=== PATIENT | male | born 1970 | race Hispanic/Latino ===

== ENCOUNTER 2018-05-21 11:03 | Emergency (ER) | payer BC, OTHER ==
--- NOTE | 2018-05-21 13:05 | RAD REPORT ---
EXAM DESCRIPTION: RAD - Chest Pa And Lat (2 Views) - 05/21/2018 12:54 pm CLINICAL HISTORY: Cough and congestion, wheezing COMPARISON: None. TECHNIQUE: PA and lateral views of the chest were obtained. FINDINGS: The lungs are clear. Heart size is normal and central vasculature is within normal limit s. No pleural effusion or pneumothorax seen. No acute bony finding noted. No aortic abnormality. IMPRESSION: No acute cardiopulmonary process.
--- NOTE | 2018-05-21 13:16 | ER ---
Nurse's Notes [facility] Name: Mac Colón Age: 48 yrs Sex: Male : 1970 Arrival Date: 05/21/2018 Time: 11:08 Bed 27 Private MD: Aman Quintanilla R Diagnosis: Cough;Bronchitis, not specified as acute or chronic Presentation: 05/21 11:33 Presenting complaint: Patient states: i have cough and wheezing that started about 4 hj days ago; denies fever and chills; went to urgent care 2 days ago and gave me Rx; and im not getting any better; been taking those meds;. Transition of care: patient was not received from another setting of care. Resp Distress? No respiratory distress is noted at this time. Onset of symptoms was May 21, 2018. Risk Assessment: Do you want to hurt yourself or someone else? Patient reports no desire to harm self or others. Initial Sepsis Screen: Does the patient meet any 2 criteria? No. Patient's initial sepsis screen is negative. Does the patient have a suspected source of infection? No. Patient's initial sepsis screen is negative. Care prior to arrival: None. 11:33 Method Of Arrival: Ambulatory 11:33 Acuity: QUAN 3 hj Triage Assessment: 11:37 General: Appears in no apparent distress. uncomfortable, Behavior is calm, cooperative, hj appropriate for age. Pain: Complains of pain in rib cage. Respiratory: Historical: - Allergies: 11:37 No Known Allergies; hj - Home Meds: 11:37 atorvastatin oral oral [Active]; losartan oral oral [Active]; hj - PMHx: 11:37 Hyperlipidemia; Hypertension; hj - PSHx: 11:37 Knee surgery; hj - Immunization history:: Adult Immunizations up to date. - Social history:: Smoking status: Patient/guardian denies using tobacco. - Ebola Screening: : Patient negative for fever greater than or equal to 101.5 degrees Fahrenheit, and additional compatible Ebola Virus Disease symptoms Patient denies exposure to infectious person Patient denies travel to an Ebola-affected area in the 21 days before illness onset. - Family history:: not pertinent. - Hospitalizations: : No recent hospitalization is reported. Screenin:37 Abuse screen: Denies threats or abuse. Denies injuries from another. Nutritional hj screening: No deficits noted. Tuberculosis screening: No symptoms or risk factors identified. Fall Risk None identified. Assessment: 11:37 Cardiovascular: Capillary refill < 3 seconds Patient's skin is warm and dry. hj 12:35 General: Appears in no apparent distress. uncomfortable, Behavior is calm, cooperative, aj1 appropriate for age. Pain: Complains of pain in left aspect of posterior pharynx and right aspect of posterior pharynx. Neuro: Level of Consciousness is awake, alert, obeys commands, Oriented to person, place, time, situation. Cardiovascular: Patient's skin is warm and dry. Respiratory: Reports cough that is persistent Airway is patent Respiratory effort is even, unlabored, Respiratory pattern is regular, symmetrical. Respiratory: Breath sounds are clear bilaterally. GI: No signs and/or symptoms were reported involving the gastrointestinal system. : No signs and/or symptoms were reported regarding the genitourinary system. Derm: No signs and/or symptoms reported regarding the dermatologic system. Skin is pink, warm \T\ dry. normal. Musculoskeletal: No signs and/or symptoms reported regarding the musculoskeletal system. Circulation, motion, and sensation intact. Vital Signs: 11:37 BP 116 / 85; Pulse 79; Resp 18; Temp 97.6(TE); Pulse Ox 100% on R/A; Weight 89.36 kg; hj Height 5 ft. 5 in. (165.10 cm); Pain 5/10; 13:39 BP 120 / 90; Pulse 75; Resp 18; Pulse Ox 100% ; tl3 11:37 Body Mass Index 32.78 (89.36 kg, 165.10 cm) ED Course: 11:08 Patient arrived in ED. mr 11:09 Aman Quintanilla MD is Private Physician. mr 11:36 Triage completed. hj 11:37 Arm band placed on left wrist. hj 11:37 Patient has correct armband on for positive identification. Placed in gown. Bed in low hj position. Call light in reach. 12:16 Wood Tavera MD is Attending Physician. rn 12:19 Anjali Curran RN is Primary Nurse. aj1 12:35 No provider procedures requiring assistance completed. aj1 12:43 Patient moved to radiology via wheelchair. jb2 12:49 X-ray completed. Patient tolerated procedure well. Patient moved back from radiology. jb2 12:50 XRAY Chest Pa And Lat (2 Views) In Process Unspecified. EDMS 13:42 Patient did not have IV access during this emergency room visit. tl3 Administered Medications: No medications were administered Outcome: 13:16 Discharge ordered by . rn 13:40 Discharged to home ambulatory. tl3 13:40 Condition: stable 13:40 Discharge instructions given to patient, Instructed on discharge instructions, follow up and referral plans. medication usage, stressed fluid intake, continued use of medications as ordered, F/U with PCP Demonstrated understanding of 13:42 Patient left the ED. tl3 Signatures: Dispatcher [employer] EDMS Anjali Curran RN RN aj1 Darlene FaganKarsten jb2 Wood Tavera MD MD rn Joaquin, Henry, RN RN hj Lowrey, Tammy, RN RN tl3 Corrections: (The following items were deleted from the chart) 11:40 11:37 Pulse 79bpm; Resp 18bpm; Pulse Ox 100% RA; Temp 97.6F Temporal; 89.36 kg; Height hj 5 ft. 5 in.; BMI: 32.7; Pain 5/10; hj
--- NOTE | 2018-05-21 13:16 | EDPHYS ---
Physician Documentation [facility] Name: Mac Colón Age: 48 yrs Sex: Male : 1970 Arrival Date: 05/21/2018 Time: 11:08 Bed 27 Private MD: Aman Quintanilla R ED Physician Wood Tavera HPI: 05/21 12:30 This 48 yrs old Male presents to ER via Ambulatory with complaints of Cough, rn Congestion. 12:30 The patient or guardian reports cough. rn 12:30 Onset: The symptoms/episode began/occurred 4 day(s) ago. Severity of symptoms: At their rn worst the symptoms were moderate, in the emergency department the symptoms are unchanged. Associated signs and symptoms: Pertinent positives: rhinorrhea, sore throat. The patient has not experienced similar symptoms in the past. The patient has been recently seen by a physician: The patient has been recently seen at an urgent care. Reports cough/congestion/sore throat for 4 days, seen at urgent care 2 days ago, put on inhaler/cough meds/amoxicillin, reports not better, still coughing. No pulmonary issues. Non-smoker. . Historical: - Allergies: 11:37 No Known Allergies; hj - Home Meds: 11:37 atorvastatin oral oral [Active]; losartan oral oral [Active]; hj - PMHx: 11:37 Hyperlipidemia; Hypertension; hj - PSHx: 11:37 Knee surgery; hj - Immunization history:: Adult Immunizations up to date. - Social history:: Smoking status: Patient/guardian denies using tobacco. - Ebola Screening: : Patient negative for fever greater than or equal to 101.5 degrees Fahrenheit, and additional compatible Ebola Virus Disease symptoms Patient denies exposure to infectious person Patient denies travel to an Ebola-affected area in the 21 days before illness onset. - Family history:: not pertinent. - Hospitalizations: : No recent hospitalization is reported. ROS: 12:30 Constitutional: Negative for fever, chills, and weight loss, Eyes: Negative for injury, rn pain, redness, and discharge, ENT: + nasal congestion and sore throat Neck: Negative for injury, pain, and swelling, Cardiovascular: Negative for chest pain, palpitations, and edema, Respiratory: Negative for wheezing, and pleuritic chest pain, Abdomen/GI: Negative for abdominal pain, nausea, vomiting, diarrhea, and constipation, MS/Extremity: Negative for injury and deformity, Skin: Negative for injury, rash, and discoloration, Neuro: Negative for headache, weakness, numbness, tingling, and seizure. Exam: 12:30 Constitutional: This is a well developed, well nourished patient who is awake, alert, rn and in no acute distress. Repeated coughing. Head/Face: Normocephalic, atraumatic. Eyes: Pupils equal round and reactive to light, extra-ocular motions intact. Lids and lashes normal. Conjunctiva and sclera are non-icteric and not injected. Cornea within normal limits. Periorbital areas with no swelling, redness, or edema. ENT: MMM, no stridor, no oral lesions Neck: + non-tender cervical LAD Cardiovascular: Regular rate and rhythm with a normal S1 and S2. No gallops, murmurs, or rubs. No JVD. No pulse deficits. Respiratory: Lungs have equal breath sounds bilaterally, clear to auscultation. No increased work of breathing, no retractions or nasal flaring. Skin: Warm, dry with normal turgor. Normal color with no rashes, no lesions, and no evidence of cellulitis. MS/ Extremity: Pulses equal, no cyanosis. Neurovascular intact. Full, normal range of motion. Equal circumference. Neuro: Awake and alert, GCS 15, oriented to person, place, time, and situation. Cranial nerves II-XII grossly intact. Motor strength 5/5 in all extremities. Sensory grossly intact. Cerebellar exam normal. Normal gait. Vital Signs: 11:37 BP 116 / 85; Pulse 79; Resp 18; Temp 97.6(TE); Pulse Ox 100% on R/A; Weight 89.36 kg; hj Height 5 ft. 5 in. (165.10 cm); Pain 5/10; 13:39 BP 120 / 90; Pulse 75; Resp 18; Pulse Ox 100% ; tl3 11:37 Body Mass Index 32.78 (89.36 kg, 165.10 cm) MDM: 12:16 Patient medically screened. rn 13:14 Differential Diagnosis: Bronchitis Viral Syndrome Pneumonia. Data reviewed: vital rn signs, nurses notes, radiologic studies, plain films, and as a result, I will discharge patient. Counseling: I had a detailed discussion with the patient and/or guardian regarding: the historical points, exam findings, and any diagnostic results supporting the discharge/admit diagnosis, radiology results, the need for outpatient follow up, to return to the emergency department if symptoms worsen or persist or if there are any questions or concerns that arise at home. Special discussion: I discussed with the patient/guardian in detail that at this point there is no indication for admission to the hospital. It is understood, however, that if the symptoms persist or worsen the patient needs to return immediately for re-evaluation. ED course: Pt with normal CXR, will dc home as already on abx and inhaler, no oxygen requirement, told him to expect cough for another week or so. Return precautions given and understood. . 05/21 12:22 Order name: XRAY Chest Pa And Lat (2 Views); Complete Time: 13:14 rn Administered Medications: No medications were administered Disposition: 05/21/18 13:16 Discharged to Home. Impression: Cough, Bronchitis, not specified as acute or chronic. - Condition is Stable. - Discharge Instructions: Acute Bronchitis, Adult, Cough, Adult. - Medication Reconciliation Form, Thank You Letter, Antibiotic Education, Prescription Opioid Use, Work release form form. - Follow up: Private Physician; When: As needed; Reason: Recheck today's complaints, Re-evaluation by your physician. - Problem is new. - Symptoms have improved. Signatures: Dispatcher [employer] EDMS Wood Tavera MD MD rn Joaquin, Henry, RN RN hj Lowrey, Tammy, RN RN tl3 Corrections: (The following items were deleted from the chart) 13:42 13:16 05/21/2018 13:16 Discharged to Home. Impression: Cough; Bronchitis, not specified tl3 as acute or chronic. Condition is Stable. Forms are Medication Reconciliation Form, Thank You Letter, Antibiotic Education, Prescription Opioid Use. Follow up: Private Physician; When: As needed; Reason: Recheck today's complaints, Re-evaluation by your physician. Problem is new. Symptoms have improved. rn
== END 2018-05-21 13:42 | disposition home or self-care (01) ==
LOC: ER 11:03
DX: J40 Bronchitis, not specified as acute or chronic (principal); I10 Essential (primary) hypertension; E78.5 Hyperlipidemia, unspecified
CPT/HCPCS: 71046; 99283

== ENCOUNTER 2020-11-19 07:25 | Emergency (ER) | payer BC ==
--- OUTSIDE RECORDS SUMMARY | 2020-11-19 07:32 | XMS REPORT | Continuity of Care Document ---
:1970 Author Organization [facility] t Address [address] [place] [address] Care Team Providers Name Role Phone Sina Blancas DPM Attending Clinician Steve BARAJAS, P. Attending Clinician Tika Castaneda MD Attending Clinician Gabriel WEAVER Attending Clinician Unavailable Santosh Blancas DPM Attending Clinician Emanuel Tapia MD Attending Clinician Susan BARAJAS Attending Clinician TIKA CASTANEDA Admitting Clinician Unavailable Payers Payer Name Policy Type Policy Effective Date Expiration Date Sour ce Number BLUE CROSS/BLUE [id number] [facility] [id number] [id number], [place] [address] Problems Condition Condition Condition Status Onset Resolution Last Treating Co mments Source Name Details Category Date Date Treatment Clinician Date Cellulitis Cellulitis Disease Active 2019-[address] [facility] - 00:00: Medical 00 Center Allergies, Adverse Reactions, Alerts This patient has no known allergies or adverse reactions. Family History Family Member Diagnosis Comments Start Date Stop Date Source Maternal uncle No Known Problem [facility] Natural mother No Known Problem [facility] Paternal aunt No Known Problem [facility] Paternal uncle No Known Problem [facility] Natural sister No Known Problem [facility] Natural son No Known Problem [facility] Natural brother No Known Problem [facility] Natural daughter No Known Problem [facility] Natural father Diabetes [facility] Maternal aunt No Known Problem [facility] Social History Social Habit Start Date Stop Date Quantity Comments Source Sex Assigned At [facility] Tobacco use and 2020-05-21 2020-05-21 Current user [facility] - exposure 00:00:00 00:00:00 [facility] Alcohol intake 2020-05-21 2020-05-21 Current drinker of [facility] - 00:00:00 00:00:00 alcohol (finding) [facility] Alcohol Comment 2020-05-20 2020-05-20 ocassionaly [facility] L ukes - 00:00:00 00:00:00 [facility] Smoking Status Start Date Stop Date Source Current every day smoker 2020-05-21 00:00:00 [facility] Medications Ordered Filled Start Stop Current Ordering Indication Dosage Frequency Signature Comments Components Source Medication Medication Date Date Medication? Clinician (SIG) Name Name metFORMIN 2021- No 1000mg Take [address] [facility] (GLUCOPHAGE 05-24 tablet [facility] - ) 1000 MG 00:00: 23:59 (1,000 mg Me dical tablet 00 :00 total) by Center mouth 2 (two) times daily with breakfast and dinner. losartan 2021- No 50mg QD Take [address] [facility] (COZAAR) 50 05-24 tablet (50 L ukes - MG tablet 00:00: 23:59 mg total) Me dical 00 :00 by mouth Center daily. traMADoL No 50mg Take [address] [facility] (ULTRAM) 50 05-24 tablet (50 L ukes - mg tablet 00:00: 23:59 mg total) Me dical 00 :00 by mouth Center every 6 (six) hours as needed for up to 10 days. Max Daily Amount: 200 mg amoxicillin 2020- No 1{tbl} Q.5D Take [address] -clavulanat 05-24 tablet by Sharon cooley 00:00: 23:59 mouth 2 Medical (AUGMENTIN) 00 :00 (two) [place] 875-125 mg times per tablet daily for 10 days. mupirocin 1g QD Apply [address] (BACTROBAN) 05-24 topically Sharon torers - 2 % 00:00: 23:59 daily for Medical ointment 00 :00 7 days. Center Vital Signs Vital Name Observation Time Observation Value Comments Source Systolic blood 2020-05-24 11:07:00 141 mm[Hg] [facility] Diastolic blood 2020-05-24 11:07:00 91 mm[Hg] [facility] Heart rate 2020-05-24 11:07:00 57 /min [facility] Body temperature 2020-05-24 11:07:00 36 Gris [facility] Respiratory rate 2020-05-24 11:07:00 18 /min [facility] Oxygen saturation in 2020-05-24 11:07:00 100 /min [facility] Arterial blood by Medical Ce nter Pulse oximetry Body height 2020-05-20 15:59:00 165.1 cm [facility] Body weight 2020-05-20 15:59:00 85.548 kg [facility] BMI 2020-05-20 15:59:00 31.38 kg/m2 [facility] Procedures Procedure Date / Time Performed Performing Clinician Katelyn michelle POCT-GLUCOSE METER 2020-05-24 11:12:00 [facility] 2020-05-24 07:22:00 Tonya [facility] & AUTO 2020-05-24 03:41:00 Estella Castaneda C HI [facility] BASIC METABOLIC PANEL 2020-05-24 03:41:00 Estella Castaneda CH I [facility] (7) [facility] VANCOMYCIN LEVEL, TROUGH 2020-05-23 21:24:00 Tonya, [facility] Tika [facility] POCT-GLUCOSE METER 2020-05-23 21:02:00 Tonya, [facility] POCT-GLUCOSE METER 2020-05-23 16:17:00 Tonya, [facility] POCT-GLUCOSE METER 2020-05-23 11:27:00 Tonya, [facility] POCT-GLUCOSE METER 2020-05-23 07:14:00 Tonya, [facility] CBC W/PLT COUNT & AUTO 2020-05-23 04:57:00 Tonya, [facility] Tika C [facility] BASIC METABOLIC PANEL 2020-05-23 04:57:00 Tonya, [facility] CH I [facility] () [facility] BUN AND CREATININE 2020-05-23 04:57:00 Tonya, [facility] W/[facility] POCT-GLUCOSE METER 2020-05-22 20:43:00 Tonya, [facility] POCT-GLUCOSE METER 2020-05-22 16:27:00 Tonya, [facility] POCT-GLUCOSE METER 2020-05-22 11:05:00 Tonya, [facility] POCT-GLUCOSE METER 2020-05-22 07:20:00 Tonya, [facility] POCT-GLUCOSE METER 2020-05-21 16:47:00 Tonya, [facility] POCT-GLUCOSE METER 2020-05-21 15:38:00 Tonya, [facility] SURGICALLY OBTAINED 2020-05-21 14:52:55 Tito Blancas [facility] - CULTURE + GRAM STAIN Medical [address] [facility] ANAEROBIC CULTURE 2020-05-21 14:52:55 Ross, Tito A. [facility] SURGICALLY OBTAINED 2020-05-21 14:49:13 Paris Menchaca [facility] - CULTURE + GRAM STAIN Medical [address] [facility] ANAEROBIC CULTURE 2020-05-21 14:49:13 Paris Menchaca [facility] DEBRIDEMENT/I&D,WOUND 2020-05-21 13:57:00 Tito Blancas [facility] EXTREMITY LOWER [facility] POCT-GLUCOSE METER 2020-05-21 13:34:00 Tonya, [facility] ECG 12-LEAD 2020-05-21 09:07:42 Randi Tapia [facility] WOUND CULTURE + GRAM 2020-05-21 09:03:00 Tito Blancas [facility] ABORH, MANUAL 2020-05-21 06:30:00 Jaquelin Hall [facility] TYPE AND SCREEN, 2020-05-21 04:11:00 Denise Melchor [facility] CBC W/PLT COUNT & AUTO 2020-05-21 04:11:00 Tonya, [facility] C [facility] HEMOGLOBIN A1C 2020-05-21 04:11:00 Tonya, [facility] LIPID PANEL 2020-05-21 04:11:00 Tonya, [facility] BASIC METABOLIC PANEL 2020-05-21 04:11:00 Tonya, Shantelor Tika [facility] - (7) [facility] MAGNESIUM 2020-05-21 04:11:00 Tonya, [facility] POCT-GLUCOSE METER 2020-05-20 23:17:00 Tonya, [facility] SARS-COV2/RT-PCR ([facility] & 2020-05-20 22:32:00 Denise Melchor [facility] - REF LABS) Medical [facility] VANCOMYCIN LEVEL, RANDOM 2020-05-20 16:35:00 Bghigh, Diamond [facility] BUN AND CREATININE 2020-05-20 16:35:00 Bghigh, Diamond [facility] St Sharon kes - W/RATIO [facility] Plan of Care Planned Activity Planned Date Details Comments Source Future Scheduled 2023-05-[address] [facility] 00:[facility]00 (procedure) [code = Medical Center 01528910] Future Scheduled 2021-01-[address] [facility] - Test 00:00:00 (Season Ended) [code = Medic al Center INFLUENZA VACCINE (Season Ended)] Future Scheduled 2020-08-[address] Sharon kes - Test 00:00:00 measurement Medical Center (procedure) [code = 29962263] Future Scheduled 2020-05-[address] [facility] - Test 00:00:00 (12+) [code = Medical Center DEPRESSION SCREENING (12+)] Future Scheduled 2020-02-19 SHINGLES VACCINES ([address] [facility] - Test 00:00:00 of 2) [code = SHINGLES Medic al Center VACCINES (1 of 2)] Future Scheduled 1989 DTAP/TDAP/TD VACCINES [facility] Test 00:00:00 (1 - Tdap) [code = Medical C enter DTAP/TDAP/TD VACCINES (1 - Tdap)] Future Scheduled 1988-02-19 HEPATITIS C SCREENING [facility] - Test 00:00:00 [code = HEPATITIS C Medical Center SCREENING] Future Scheduled 1982 COVID-19 VACCINE (1) [facility] - Test 00:00:00 [code = COVID-[address] VACCINE (1)] Future Scheduled 1980-02-19 DIABETIC EYE EXAM [facility] - Test 00:00:00 [code = DIABETIC EYE Medical Center EXAM] Future Scheduled 1980-02-[address] [facility] - Test 00:00:00 examination Medical Center (regime/therapy) [code = 197306123] Future Scheduled 1980-02-19 Urine screening for [facility] - Test 00:00:00 protein (procedure) Medical Center [code = 703932870] Future Scheduled 1976-02-[address] [facility] - Test 00:00:00 0-64 YRS (1 of 1 - Medical C enter PPSV23) [code = PNEUMOCOCCAL VACCINE 0-64 YRS (1 of 1 - PPSV23)] Future Scheduled [address] [facility] es - Test 00:00:00 malignant neoplasm of Medica l Center colon (procedure) [code = 493892429] Encounters Start End Encounter Admission Attending Care Care Encounter Source Date/Time Date/Time Type Type Clinicians Facility Department ID 2020-07-29 2020-07-29 Office OTTONIEL Blancas [id number] 15:14:50 16:57:58 Visit Tito Andino AMBULATOR [id number] Y [id number] 2020-06-15 2020-06-15 Office OTTONIEL Blancas [id number] 07 09:30:56 13:32:13 Visit Tito A AMBULATOR [id number] Y [id number] Results Test Description Test Time Test Comments Results Result Comments Source Anaerobic culture 2020-06-03 20:32:00 Test Item Value Reference Range Interpretation Comme nts Result (test code = 6463-4) 2+ Finegoldia magna A Lab Interpretation (test code = 61089-9) Abnormal [facility] [id number] 20:32:00 Test Item Value Reference Range Interpretation Comments CULTURE (BEAKER) (test code A 2+ Finegoldia magna = 1095) ANAEROBIC [id number] 19:24:00 Test Item Value Reference Range Interpretation Comments CULTURE (BEAKER) (test No anaerobes isolated code = 1095) POC-Glucose [id number] 11:24:00 Test Item Value Reference Range Interpretation Comments POC-Glucose Meter (test 165 mg/dL 70-110 H : TE STED AT [facility] code = 1538) [address] [facility], 770 30: Electronics Technology Department Chair/Techni aurelio ID = [id number] for Prema Rodriguez Lab Interpretation (test Abnormal code = 32789-5) [facility] [id number] 11:24:00 Test Item Value Reference Range Interpretation Comments POC-GLUCOSE METER 165 mg/dL 70-110 H : TESTED A T [facility] 6720 (BEAKER) (test code = [facility] [place], 1538) [address]: Electronics Technology Department Chair/Techni aurelio ID = [id number] for Prema Padron SURGICALLY OBTAINED CULTURE + GRAM [id number] 09:43:00 Test Item Value Reference Range Interpretation Comments CULTURE (BEAKER) (test PROTEUS A <1+ P roteus code = 1095) MIRABILIS mirabilis Amikacin (test code = S 1) Ampicillin + Sulbactam S (test code = 6) Aztreonam (test code = S 32) Cefepime (test code = S 51) Cefoxitin (test code = S 68) Ceftazidime (test code S = 27) Ceftriaxone (test code S = 52) Ertapenem (test code = S 38) Gentamicin (test code S = 18) Levofloxacin (test S code = 22) Meropenem (test code = S 34) Nitrofurantoin (test R code = 23) Piperacillin + S Tazobactam (test code = 29) Tetracycline (test R code = 2) Tobramycin (test code S = 25) Trimethoprim + S Sulfamethoxazole (test code = 47) CULTURE (BEAKER) (test A 1+ Be ta-hemolytic code = 1095) streptococcus group B, by serological grouping GRAM STAIN RESULT 2+ WBCs (BEAKER) (test code = 1123) GRAM STAIN RESULT <1+ gram (BEAKER) (test code = negative rods 725807) GRAM STAIN RESULT 1+ gram (BEAKER) (test code = positive cocci 589646) in pairs and clusters SURGICALLY OBTAINED CULTURE + GRAM [id number] 09:42:00 Test Item Value Reference Range Interpretation Comments CULTURE (BEAKER) A 1+ Beta-hem olytic (test code = streptococcus g roup 1095) B, by serologic al grouping GRAM STAIN 3+ WBCs RESULT (BEAKER) (test code = 1123) GRAM STAIN 1+ gram positive RESULT (BEAKER) cocci in chains (test code = and pairs 62012) POCT-GLUCOSE [id number] 07:35:00 Test Item Value Reference Range Interpretation Comments POC-GLUCOSE METER 203 mg/dL 70-110 H : TESTED A T [facility] 6720 (BEAKER) (test code = ZORAN Weeks [facility], 1538) [address]: [employer] Department Chair/Techni aurelio ID = [id number] for Prema Padron Basic Metabolic [id number] 06:39:00 Test Item Value Reference Range Interpretation Comments Sodium (test code = 137 meq/L 613-722 4458-2) Potassium (test code 4.0 meq/L 3.5-5.1 = 2823-3) Chloride (test code = 105 meq/L 98-107 2075-0) CO2 (test code = 23 meq/L 22-29 2028-9) BUN (test code = 14 mg/dL 7-21 3094-0) Creatinine (test code 1.62 mg/dL 0.57-1.25 H = 2160-0) Glucose (test code = 223 mg/dL 70-105 H 2345-7) Calcium (test code = 9.3 mg/dL 8.4-10.2 50511-2) EGFR (test code = [place] [address]-0) CLINICAL DATA T O CALCULATE ESTIMATED GFR. TING (test code = TING) [employer] Department Chair ID - STEWART M Lab Interpretation Abnormal (test code = 17129-7) [facility] MET[facility]OLIC [id number] 06:39:00 Test Item Value Reference Range Interpretation Comments SODIUM (BEAKER) (test 137 meq/L 136-145 code = 381) POTASSIUM (BEAKER) 4.0 meq/L 3.5-5.1 (test code = 379) CHLORIDE (BEAKER) 105 meq/L 98-107 (test code = 382) CO2 (BEAKER) (test 23 meq/L 22-29 code = 355) BLOOD UREA NITROGEN 14 mg/dL 7-21 (BEAKER) (test code = 354) CREATININE (BEAKER) 1.62 mg/dL 0.57-1.25 H (test code = 358) GLUCOSE RANDOM 223 mg/dL 70-105 H (BEAKER) (test code = 652) CALCIUM (BEAKER) 9.3 mg/dL 8.4-10.2 (test code = 697) EGFR (BEAKER) (test INSUFFIC IENT CLINICAL code = 1092) DATA TO CALCULA TE ESTIMATED GFR. [employer] Department Chair TERESA WILLIAM [facility] with platelet count + automated [id number] 05:40:00 Test Item Value Reference Range Interpretation Comments WBC (test code = 6.2 See_Comment [Automated message] 6690-2) The system [email or web address] generated this result transmitted ref erence range: 3.5 - 10 .5 K/L. The refe rence range was not u sed to interpret this result as normal/abnor mal. RBC (test code = 789-8) 4.93 See_Comment [Au tomated message] The system [email or web address] generated this result transmitted ref erence range: 4.63 - 6 .08 M/L. The refe rence range was not u sed to interpret this result as normal/abnor mal. MCHC (test code = 33.3 See_Comment [Automate d message] 786-4) The system [email or web address] generated this result transmitted ref erence range: 32.3 - 3 6.5 GM/DL. The refe rence range was not u sed to interpret this result as normal/abnor mal. Hematocrit (test code = 43.9 % 40.1-51 4544-3) MCV (test code = 787-2) 89.0 fL 79-92.2 MCH (test code = 785-6) 29.6 pg 25.7-32.2 RDW (test code = 788-0) 12.2 % 11.6-14.4 Platelets (test code = 250 See_Comment [Aut omated message] 007-3) The system [email or web address] generated this result transmitted ref erence range: 150 - 45 0 K/CU MM. The referen ce range was not used to interpret this result as normal/abnor mal. MPV (test code = 9.8 fL 9.4-12.4 33615-9) nRBC (test code = 413) 0 See_Comment [Aut omated message] The system [email or web address] generated this result transmitted ref erence range: 0 - 0 /1 00 WBC. The reference r christiano was not used to int erpret this result as normal/abnormal . % Neutros (test code = 47 % 429) % Lymphs (test code = 35 % 430) % Monos (test code = 12 % 431) % Eos (test code = 432) 5 % % Baso (test code = 0 % 437) # Neutros (test code = 2.94 See_Comment [Aut omated message] 670) The system [email or web address] generated this result transmitted ref erence range: 1.78 - 5 .38 K/L. The refe rence range was not u sed to interpret this result as normal/abnor mal. # Lymphs (test code = 2.19 See_Comment [Auto mated message] 414) The system [email or web address] generated this result transmitted ref erence range: 1.32 - 3 .57 K/L. The refe rence range was not u sed to interpret this result as normal/abnor mal. # Monos (test code = 0.76 See_Comment [Autom ated message] 415) The system [email or web address] generated this result transmitted ref erence range: 0.30 - 0 .82 K/L. The refe rence range was not u sed to interpret this result as normal/abnor mal. # Eos (test code = 416) 0.28 See_Comment [Au tomated message] The system [email or web address] generated this result transmitted ref erence range: 0.04 - 0 .54 K/L. The refe rence range was not u sed to interpret this result as normal/abnor mal. # Baso (test code = 0.02 See_Comment [Automa dinah message] 417) The system [email or web address] generated this result transmitted ref erence range: 0.01 - 0 .08 K/L. The refe rence range was not u sed to interpret this result as normal/abnor mal. Immature 0 % 0-1 Granulocytes-Relative (test code = 2801) [facility] W/PLT COUNT & AUTO [id number] 05:40:00 Test Item Value Reference Range Interpretation Comments WHITE BLOOD CELL COUNT (BEAKER) 6.2 K/ L 3.5-10.5 (test code = 775) RED BLOOD CELL COUNT (BEAKER) 4.93 M/ L 4.63-6.08 (test code = 761) HEMOGLOBIN (BEAKER) (test code = 14.6 GM/DL 13.7-17.5 410) HEMATOCRIT (BEAKER) (test code = 43.9 % 40.1-51.0 411) MEAN CORPUSCULAR VOLUME (BEAKER) 89.0 fL 79.0-92.2 (test code = 753) MEAN CORPUSCULAR HEMOGLOBIN 29.6 pg 25.7-32.2 (BEAKER) (test code = 751) MEAN CORPUSCULAR HEMOGLOBIN CONC 33.3 GM/DL 32.3-36.5 (BEAKER) (test code = 752) RED CELL DISTRIBUTION WIDTH 12.2 % 11.6-14.4 (BEAKER) (test code = 412) PLATELET COUNT (BEAKER) (test 250 K/CU MM 150-450 code = 756) MEAN PLATELET VOLUME (BEAKER) 9.8 fL 9.4-12.4 (test code = 754) NUCLEATED RED BLOOD CELLS 0 /100 WBC 0-0 (BEAKER) (test code = 413) NEUTROPHILS RELATIVE PERCENT 47 % (BEAKER) (test code = 429) LYMPHOCYTES RELATIVE PERCENT 35 % (BEAKER) (test code = 430) MONOCYTES RELATIVE PERCENT 12 % (BEAKER) (test code = 431) EOSINOPHILS RELATIVE PERCENT 5 % (BEAKER) (test code = 432) BASOPHILS RELATIVE PERCENT 0 % (BEAKER) (test code = 437) NEUTROPHILS ABSOLUTE COUNT 2.94 K/ L 1.78-5.38 (BEAKER) (test code = 670) LYMPHOCYTES ABSOLUTE COUNT 2.19 K/ L 1.32-3.57 (BEAKER) (test code = 414) MONOCYTES ABSOLUTE COUNT (BEAKER) 0.76 K/ L 0.30-0.82 (test code = 415) EOSINOPHILS ABSOLUTE COUNT 0.28 K/ L 0.04-0.54 (BEAKER) (test code = 416) BASOPHILS ABSOLUTE COUNT (BEAKER) 0.02 K/ L 0.01-0.08 (test code = 417) IMMATURE GRANULOCYTES-RELATIVE 0 % 0-1 PERCENT (BEAKER) (test code = 2801) Vancomycin level, [id number] 21:55:00 Test Item Value Reference Range Interpretation Comments Vancomycin Tr (test code = 9.1 ug/mL 10-20 L 4092-3) TING (test code = TING) Electronics Technology Department Chair ID - DB Lab Interpretation (test Abnormal code = 05360-9) [facility], [id number] 21:55:00 Test Item Value Reference Range Interpretation Comments VANCOMYCIN TROUGH (BEAKER) (test 9.1 ug/mL 10.0-20.0 L code = 522) [employer] Department Chair ID - DBPOCT-GLUCOSE [id number] 21:14:00 Test Item Value Reference Range Interpretation Comments POC-GLUCOSE METER 251 mg/dL 70-110 H : TESTED A T [facility] 6720 (BEAKER) (test code = [facility], 1538) [address]: Electronics Technology Department Chair/Techni aurelio ID = [id number] for PAPO HECK POCT-GLUCOSE [id number] 16:34:00 Test Item Value Reference Range Interpretation Comments POC-GLUCOSE METER 235 mg/dL 70-110 H : TESTED A T [facility] 6720 (BEAKER) (test code = [facility], 1538) [address]: Electronics Technology Department Chair/Techni aurelio ID = [id number] for Prema Padron POCT-GLUCOSE [id number] 11:39:00 Test Item Value Reference Range Interpretation Comments POC-GLUCOSE METER 160 mg/dL 70-110 H : TESTED A T [facility] 6720 (BEAKER) (test code = [facility], 1538) [address]: Electronics Technology Department Chair/Techni aurelio ID = [id number] for Prema Padron WOUND CULTURE + GRAM [id number] 09:27:00 Test Item Value Reference Range Interpretation Comments CULTURE (BEAKER) (test PROTEUS A <1+ P roteus code = 1095) MIRABILIS mirabilis Amikacin (test code = S 1) Ampicillin + Sulbactam S (test code = 6) Aztreonam (test code = S 32) Cefepime (test code = S 51) Cefoxitin (test code = S 68) Ceftazidime (test code S = 27) Ceftriaxone (test code S = 52) Ertapenem (test code = S 38) Gentamicin (test code S = 18) Levofloxacin (test S code = 22) Meropenem (test code = S 34) Nitrofurantoin (test R code = 23) Tetracycline (test R code = 2) Tobramycin (test code S = 25) Trimethoprim + S Sulfamethoxazole (test code = 47) CULTURE (BEAKER) (test A 1+ Be ta-hemolytic code = 1095) streptococcus group B, by serological grouping GRAM STAIN RESULT 2+ WBCs (BEAKER) (test code = 1123) GRAM STAIN RESULT <1+ gram (BEAKER) (test code = positive cocci 818707) in pairs POCT-GLUCOSE [id number] 08:00:00 Test Item Value Reference Range Interpretation Comments POC-GLUCOSE METER 120 mg/dL 70-110 H : TESTED A T [facility] 6720 (BEAKER) (test code = [place], 1538) [address]: Electronics Technology Department Chair/Techni aurelio ID = [id number] for Prema Padron BUN and [id number] 05:46:00 Test Item Value Reference Range Interpretation Comments BUN (test code = 13 mg/dL 7-21 3094-0) Creatinine (test code = 1.66 mg/dL 0.57-1.25 H 2160-0) BUN/Creatinine ratio 8 For a normal (test code = 3097-3) individ ual on a normal diet, th e reference inter william for the mass ra bill ranges between 12:1 and 20:1 (BUN i n mg/dL/creatinin e in mg/dL) EGFR (test code = [place] [address]-8) CLINICAL DATA T O CALCULATE ESTIM ATED GFR. Lab Interpretation Abnormal (test code = 51176-3) [facility] [id number] 05:46:00 Test Item Value Reference Range Interpretation Comments SODIUM (BEAKER) (test 136 meq/L 136-145 code = 381) POTASSIUM (BEAKER) 4.5 meq/L 3.5-5.1 (test code = 379) CHLORIDE (BEAKER) 104 meq/L 98-107 (test code = 382) CO2 (BEAKER) (test 25 meq/L 22-29 code = 355) BLOOD UREA NITROGEN 13 mg/dL 7-21 (BEAKER) (test code = 354) CREATININE (BEAKER) 1.66 mg/dL 0.57-1.25 H (test code = 358) GLUCOSE RANDOM 159 mg/dL 70-105 H (BEAKER) (test code = 652) CALCIUM (BEAKER) 9.3 mg/dL 8.4-10.2 (test code = 697) EGFR (BEAKER) (test INSUFFIC IENT CLINICAL code = 1092) DATA TO CALCULA TE ESTIMATED GFR. Electronics Technology Department Chair ID - STEWART MBUN AND CREATININE [id number] 05:46:00 Test Item Value Reference Range Interpretation Comments BLOOD UREA NITROGEN 13 mg/dL 7-21 (BEAKER) (test code = 354) CREATININE (BEAKER) 1.66 mg/dL 0.57-1.25 H (test code = 358) BUN/CREAT RATIO 8 For a normal (BEAKER) (test code = indivi dual on a normal [id number]) diet, the refer ence interval for th e mass ratio ranges be tween 12:1 and 20:1 ( BUN in mg/dL/creatinin e in mg/dL) EGFR (BEAKER) (test INSUFFIC IENT CLINICAL code = 1092) DATA TO CALCULA TE ESTIMATED GFR. CBC W/PLT COUNT & AUTO [id number] 05:18:00 Test Item Value Reference Range Interpretation Comments WHITE BLOOD CELL COUNT (BEAKER) 5.8 K/ L 3.5-10.5 (test code = 775) RED BLOOD CELL COUNT (BEAKER) 4.86 M/ L 4.63-6.08 (test code = 761) HEMOGLOBIN (BEAKER) (test code = 14.7 GM/DL 13.7-17.5 410) HEMATOCRIT (BEAKER) (test code = 43.5 % 40.1-51.0 411) MEAN CORPUSCULAR VOLUME (BEAKER) 89.5 fL 79.0-92.2 (test code = 753) MEAN CORPUSCULAR HEMOGLOBIN 30.2 pg 25.7-32.2 (BEAKER) (test code = 751) MEAN CORPUSCULAR HEMOGLOBIN CONC 33.8 GM/DL 32.3-36.5 (BEAKER) (test code = 752) RED CELL DISTRIBUTION WIDTH 12.2 % 11.6-14.4 (BEAKER) (test code = 412) PLATELET COUNT (BEAKER) (test 238 K/CU MM 150-450 code = 756) MEAN PLATELET VOLUME (BEAKER) 9.6 fL 9.4-12.4 (test code = 754) NUCLEATED RED BLOOD CELLS 0 /100 WBC 0-0 (BEAKER) (test code = 413) NEUTROPHILS RELATIVE PERCENT 45 % (BEAKER) (test code = 429) LYMPHOCYTES RELATIVE PERCENT 36 % (BEAKER) (test code = 430) MONOCYTES RELATIVE PERCENT 13 % (BEAKER) (test code = 431) EOSINOPHILS RELATIVE PERCENT 6 % (BEAKER) (test code = 432) BASOPHILS RELATIVE PERCENT 0 % (BEAKER) (test code = 437) NEUTROPHILS ABSOLUTE COUNT 2.62 K/ L 1.78-5.38 (BEAKER) (test code = 670) LYMPHOCYTES ABSOLUTE COUNT 2.09 K/ L 1.32-3.57 (BEAKER) (test code = 414) MONOCYTES ABSOLUTE COUNT (BEAKER) 0.76 K/ L 0.30-0.82 (test code = 415) EOSINOPHILS ABSOLUTE COUNT 0.32 K/ L 0.04-0.54 (BEAKER) (test code = 416) BASOPHILS ABSOLUTE COUNT (BEAKER) 0.02 K/ L 0.01-0.08 (test code = 417) IMMATURE GRANULOCYTES-RELATIVE 1 % 0-1 PERCENT (BEAKER) (test code = 2801) POCT-GLUCOSE [id number] 20:58:00 Test Item Value Reference Range Interpretation Comments POC-GLUCOSE METER 219 mg/dL 70-110 H : TESTED A T [facility] 6720 (BEAKER) (test code = [facility], [facility]) [address]: Electronics Technology Department Chair/Techni aurelio ID = [id number] for SAIDA YOON POCT-GLUCOSE [id number] 16:40:00 Test Item Value Reference Range Interpretation Comments POC-GLUCOSE METER 245 mg/dL 70-110 H : TESTED A T [facility] 6720 (BEAKER) (test code = [facility], [facility]8) [address]: Electronics Technology Department Chair/Techni aurelio ID = [id number] for DA VIS, KEYAIRA POCT-GLUCOSE [id number] 11:55:00 Test Item Value Reference Range Interpretation Comments POC-GLUCOSE METER 193 mg/dL 70-110 H : TESTED A T [facility] 6720 (BEAKER) (test code = [facility], 1538) [address]: Electronics Technology Department Chair/Techni aurelio ID = [id number] for DA VIS, KEYAIRA POCT-GLUCOSE [id number] 07:35:00 Test Item Value Reference Range Interpretation Comments POC-GLUCOSE METER 183 mg/dL 70-110 H : TESTED A T [facility] 6720 (BEAKER) (test code = [facility], 1538) [address]: Electronics Technology Department Chair/Techni aurelio ID = [id number] for DA VIS, KEYAIRA POCT-GLUCOSE [id number] 16:59:00 Test Item Value Reference Range Interpretation Comments POC-GLUCOSE METER 179 mg/dL 70-110 H : TESTED A T [facility] 6720 (BEAKER) (test code = [facility] Desi [facility], 1538) [address]: Electronics Technology Department Chair/Techni aurelio ID = [id number] for DA VIS, KEYAIRA POCT-GLUCOSE [id number] 15:49:00 Test Item Value Reference Range Interpretation Comments POC-GLUCOSE METER 196 mg/dL 70-110 H : TESTED A T [facility] 6720 (BEAKER) (test code = [facility], 153) [address]: Electronics Technology Department Chair/Techni aurelio ID = [id number] for KEY WATTS ECG 12 [id number] 15:13:04Interface, External Ris In - 05/21/2020 3:13 PM CSTVentricular Rate 79 BPMAtrial Rate 79 BPMP-R Interval 156 msQRS Duration 82 msQ-T Interval 368 msQTC Calculation(Bazett) 421 [address] [place] 52 degreesR [place] 76 degreesT [place] 48 degreesNormal sinus rhythmNormal ECGNo previous ECGs availableConfirmed by MD Hesham, Junior ([id number]) on 05/21/2020 3:13:02 PM [facility] [id number] 13:46:00 Test Item Value Reference Range Interpretation Comments POC-GLUCOSE METER 184 mg/dL 70-110 H : TESTED A T [facility] 6720 (BEAKER) (test code = [facility] Desi [facility], 153) [address]: Electronics Technology Department Chair/Techni aurelio ID = [id number] for RIZWANA ADRIAN SARS-CoV2/RT-PCR (Asymptomatic ONLY)2020-05-21 11:36:00 Test Item Value Reference Range Interpretation Comments SARS-COV2/RT-PCR Negative Not Detected, (test code = Negative, See 75827-2) external report for linked test SARS-COV-2 [facility] PERFORMING LAB (test code = 41544-9) TING (test code = Negative result for this TING) test determines that SARS-CoV-2 RNA was not present in the specimen above the Limit of Detection (LOD). However, Negative results do not preclude SARS-CoV-2 infection and should not be used as the sole basis for treatment or patient management decisions. Negative results must be combined with clinical observations, patient history, and epidemiological information. A false negative result may occur if a specimen is improperly collected, transported or handled. A false negative result should be considered if patient's recent exposures or clinical presentation indicate that COVID-19 (SARS-CoV-2) is likely and diagnostic tests for other causes of illness are negative. Re-testing should be considered in cases of suspected false negatives. The limit of detection for this assay is 800 copies/mL. This SARS CoV-2 test is a real-time RT-PCR test intended for the qualitative detection of nucleic acid from SARS-CoV-2 in a nasopharyngeal swab specimen collected from individuals suspected of COVID-19 by their healthcare provider. This test has not been Food and Drug Administration (FDA) cleared or approved. This is a modified version of an approved Emergency Use Authorization (EUA) and is in the process of review by the FDA. Once authorized by the FDA, the issued EUA will be effective until the declaration that circumstances exist justifying the authorization of the emergency use of in vitro diagnostic tests for detection and/or diagnosis of COVID-19 is terminated under Section 564(b)(2) of the Act or the EUA is revoked under Section 564(g) of the Act. Fact Sheet for Healthcare Providers:https://www.[employer]/sites/default/f bessy/product/documents/F act_Sheet_HC_Providers_L oqn_HLCN-PbZ-3.pdf Fact Sheet for Healthcare Patients:https://www.[employer].ED01/sites/default/fi les/product/documents/Fa ct_Sheet_Patients_Lyra_S ARS-CoV-2.pdf Performing Laboratory:[facility] [place] [address] [facility])2020-05-21 11:36:00 Test Item Value Reference Range Interpretation Comments SARS-COV2/RT-PCR (test Negative Not Detected, Negative, code = 7422948) See external report for linked test SARS-COV-2 PERFORMING LAB [facility] (test code = 8211927) Negative result for this test determines that SARS-CoV-2 RNA was not present in the specimen above the Limit of Detection (LOD). However, Negative results do not preclude SARS-CoV-2 infection and should not be used as the sole basis for treatment or patient management decisions. Negative results mustbe combined with clinical observations, patient history, and epidemiological information. A false negative result may occur if a specimen is improperly collected, transported or handled. A false negative result should be considered if patient's recent exposures or clinical presentation indicate that COVID-19 (SARS-CoV-2) is likely and diagnostic tests for other causes of illness are negative. Re-testing should be considered in cases of suspected false negatives.The limit of detection for this assay is 800 copies/mL.This SARS CoV-2 test is a real-time RT-PCR test intended for the qualitative detection of nucleic acid from SARS-CoV-2 in a nasopharyngeal swab specimen collected from individuals susp ected of COVID-19 by their healthcare provider.This test has not been Food and Drug Administration (FDA) cleared or approved. This is a modified version of an approved Emergency Use Authorization (EUA) and is in the process of review by the FDA. Once authorized by the FDA, the issued EUA will be effective until the declaration that circumstances exist justifying the authorization of the emergency use of in vitro diagnostic tests for detection and/or diagnosis of COVID-19 is terminated under Section 564(b)(2) of the Act or the EUA is revoked under Section 564(g) of the Act.Fact Sheet for Healthcare Providers:https://www.[employer].com/sites/default/files/product/documents/Fact_Shee i_TQ_Gihrkgrse_Esdp_XTQS-BpF-0.pdfFact Sheet for Healthcare Patients:https://www.[employer].com/sites/default/files/product/ documents/Tsts_Cmyoc_Uvdeznij_Suhg_ZMNL-IsH-1.pdfPerforming Laboratory:[facility], [place] [address]Vgmxqxqjtx A1c 2020-05-21 08:20:00 Test Item Value Reference Range Interpretation Comments Hemoglobin A1C (test code = 4548-4) 10.2 % 4.3-6.1 H Lab Interpretation (test code = Abnormal 44035-0) [facility]HEMO[facility]IN [id number] 08:20:00 Test Item Value Reference Range Interpretation Comments HEMOGLOBIN A1C (BEAKER) (test code = 10.2 % 4.3-6.1 H 368) antonio [id number] 07:06:00 Test Item Value Reference Range Interpretation Comments ABO Grouping (test code = 2588) A Rh Factor (test code = 2589) POS [facility] HospitalBASIC METABOLIC [id number] 05:41:00 Test Item Value Reference Range Interpretation Comments SODIUM (BEAKER) (test 135 meq/L 136-145 L code = 381) POTASSIUM (BEAKER) 4.0 meq/L 3.5-5.1 (test code = 379) CHLORIDE (BEAKER) 104 meq/L 98-107 (test code = 382) CO2 (BEAKER) (test 22 meq/L 22-29 code = 355) BLOOD UREA NITROGEN 17 mg/dL 7-21 (BEAKER) (test code = 354) CREATININE (BEAKER) 1.63 mg/dL 0.57-1.25 H (test code = 358) GLUCOSE RANDOM 180 mg/dL 70-105 H (BEAKER) (test code = 652) CALCIUM (BEAKER) 9.2 mg/dL 8.4-10.2 (test code = 697) EGFR (BEAKER) (test INSUFFIC IENT CLINICAL code = 1092) DATA TO CALCULA TE ESTIMATED GFR. Electronics Technology Department Chair ID - STEWART MLipid [id number] 05:40:00 Test Item Value Reference Range Interpretation Comments Triglycerides (test 320 mg/dL code = 2571-8) Cholesterol (test code 241 mg/dL = 2093-3) HDL (test code = 44 mg/dL 5-9) LDL Calculated (test 133 mg/dL code = 36677-6) TING (test code = TING) Triglyceride Reference Range: Low Risk <150 Borderline 150-199 High Risk 200-499 Very High Risk >=500 Cholesterol Reference Range: Low Risk <200 Borderline 200-239 High Risk >240 HDL Cholesterol Reference Range: Low Risk >=60 High Risk <40 LDL Cholesterol Reference Range: Optimal <100 Near Optimal 100-129 Borderline 130-159 High 160-189 Very High >=190 Electronics Technology Department Chair ID Gavino Gorman [facility] HospitalMagnesium2020-12-31 05:40:00 Test Item Value Reference Range Interpretation Comments Magnesium (test code = 2.2 mg/dL 1.6-2.6 03161-5) TING (test code = TING) Electronics Technology Department Chair ID Gavino Gorman Lab Interpretation (test Normal code = 36189-7) [facility]UM2020-12-31 05:40:00 Test Item Value Reference Range Interpretation Comments MAGNESIUM (BEAKER) (test code = 2.2 mg/dL 1.6-2.6 627) Electronics Technology Department Chair ID - STEWART MLIPID [id number] 05:40:00 Test Item Value Reference Range Interpretation Comments TRIGLYCERIDES (BEAKER) (test code = 320 mg/dL 540) CHOLESTEROL (BEAKER) (test code = 241 mg/dL 631) HDL CHOLESTEROL (BEAKER) (test code 44 mg/dL = 976) LDL CHOLESTEROL CALCULATED (BEAKER) 133 mg/dL (test code = 633) Triglyceride Reference Range: Low Risk <150 Borderline 150-199 High Risk 200-499 Very High Risk >=500Cholesterol Reference Range: Low Risk <200 Borderline 200-239 High Risk >240HDL Cholesterol Reference Range: Low Risk >=60 High Risk <40LDL Cholesterol Reference Range: Optimal <100 Near Optimal 100-129 Borderline 130-159 High 160-189 Very High >=190 Electronics Technology Department Chair ID Gavino WILLIAM MType and screen, [id number] 05:22:00 Test Item Value Reference Range Interpretation Comments ABO/RH AUTOMATED (BEAKER) (test A POSITIVE code = 2260) Ab Scrn (test code = 890-4) NEGATIVE [facility] HospitalCB W/PLT COUNT & AUTO [id number] 04:42:00 Test Item Value Reference Range Interpretation Comments WHITE BLOOD CELL COUNT (BEAKER) 8.2 K/ L 3.5-10.5 (test code = 775) RED BLOOD CELL COUNT (BEAKER) 5.09 M/ L 4.63-6.08 (test code = 761) HEMOGLOBIN (BEAKER) (test code = 15.3 GM/DL 13.7-17.5 410) HEMATOCRIT (BEAKER) (test code = 45.5 % 40.1-51.0 411) MEAN CORPUSCULAR VOLUME (BEAKER) 89.4 fL 79.0-92.2 (test code = 753) MEAN CORPUSCULAR HEMOGLOBIN 30.1 pg 25.7-32.2 (BEAKER) (test code = 751) MEAN CORPUSCULAR HEMOGLOBIN CONC 33.6 GM/DL 32.3-36.5 (BEAKER) (test code = 752) RED CELL DISTRIBUTION WIDTH 12.7 % 11.6-14.4 (BEAKER) (test code = 412) PLATELET COUNT (BEAKER) (test 203 K/CU MM 150-450 code = 756) MEAN PLATELET VOLUME (BEAKER) 9.5 fL 9.4-12.4 (test code = 754) NUCLEATED RED BLOOD CELLS 0 /100 WBC 0-0 (BEAKER) (test code = 413) NEUTROPHILS RELATIVE PERCENT 73 % (BEAKER) (test code = 429) LYMPHOCYTES RELATIVE PERCENT 14 % (BEAKER) (test code = 430) MONOCYTES RELATIVE PERCENT 10 % (BEAKER) (test code = 431) EOSINOPHILS RELATIVE PERCENT 2 % (BEAKER) (test code = 432) BASOPHILS RELATIVE PERCENT 0 % (BEAKER) (test code = 437) NEUTROPHILS ABSOLUTE COUNT 5.99 K/ L 1.78-5.38 H (BEAKER) (test code = 670) LYMPHOCYTES ABSOLUTE COUNT 1.15 K/ L 1.32-3.57 L (BEAKER) (test code = 414) MONOCYTES ABSOLUTE COUNT (BEAKER) 0.79 K/ L 0.30-0.82 (test code = 415) EOSINOPHILS ABSOLUTE COUNT 0.15 K/ L 0.04-0.54 (BEAKER) (test code = 416) BASOPHILS ABSOLUTE COUNT (BEAKER) 0.01 K/ L 0.01-0.08 (test code = 417) IMMATURE GRANULOCYTES-RELATIVE 1 % 0-1 PERCENT (BEAKER) (test code = 2801) POCT-GLUCOSE [id number] 23:30:00 Test Item Value Reference Range Interpretation Comments POC-GLUCOSE METER 197 mg/dL 70-110 H : TESTED A T [facility] 6720 (BEAKER) (test code = [facility] [place], 1538) [address]: Electronics Technology Department Chair/Techni aurelio ID = [id number] for GR AHAM, PAPO BUN AND CREATININE [id number] 17:29:00 Test Item Value Reference Range Interpretation Comments BLOOD UREA NITROGEN 17 mg/dL 7-21 (BEAKER) (test code = 354) CREATININE (BEAKER) 1.66 mg/dL 0.57-1.25 H (test code = 358) BUN/CREAT RATIO 10 For a normal (BEAKER) (test code = indivi dual on a normal [id number]) diet, the refer ence interval for th e mass ratio ranges be tween 12:1 and 20:1 ( BUN in mg/dL/creatinin e in mg/dL) EGFR (BEAKER) (test INSUFFIC IENT CLINICAL code = 1092) DATA TO CALCULA TE ESTIMATED GFR. Electronics Technology Department Chair ID - OSWALDO CVancomycin level, [id number] 17:24:00 Test Item Value Reference Range Interpretation Comments Vancomycin Rm (test 11.9 ug/mL code = 36902-4) TING (test code = Reference Range: No TING) NormalsOperator ID - BS [facility] HospitalVANCOMYCIN LEVEL, [id number] 17:24:00 Test Item Value Reference Range Interpretation Comments VANCOMYCIN RANDOM (BEAKER) (test 11.9 ug/mL code = 523) Reference Range: No NormalsOperator ID - BS
--- NOTE | 2020-11-19 08:28 | ER ---
Nurse's Notes [facility] Name: Mac Colón Age: 50 yrs Sex: Male : 1970 Arrival Date: 11/19/2020 Time: 07:34 Bed 5 Private MD: Aman Quintanilla R Diagnosis: Fall due to bumping against object;Contusion of right knee;Effusion, right knee Presentation: 11/19 07:38 Chief complaint: Patient states: Fell yesterday in shower, c/o R knee pain, denies ph other injury or LOC. Coronavirus screen: Client denies travel out of the [place] in the last 14 days. At this time, the client does not indicate any symptoms associated with coronavirus-19. Ebola Screen: No symptoms or risks identified at this time. Initial Sepsis Screen: Does the patient meet any 2 criteria? No. Patient's initial sepsis screen is negative. Does the patient have a suspected source of infection? No. Patient's initial sepsis screen is negative. Risk Assessment: Do you want to hurt yourself or someone else? Patient reports no desire to harm self or others. Onset of symptoms was November 19, 2020. 07:38 Method Of Arrival: Wheelchair ph 07:38 Acuity: QUAN 4 ph Historical: - Allergies: 07:39 No Known Allergies; ph - Home Meds: 07:39 losartan Oral [Active]; ph - PMHx: 07:39 Hypertension; Diabetes mellitus; ph - Immunization history:: Client reports having NOT received the Covid vaccine. - Social history:: Smoking status: Patient reports the use of cigarette tobacco products, smokes one-half pack cigarettes per day. - Family history:: not pertinent. Screenin:42 Abuse screen: Denies threats or abuse. Nutritional screening: No deficits noted. tw2 Tuberculosis screening: No symptoms or risk factors identified. Fall Risk None identified. Assessment: 07:47 General: Appears in no apparent distress. Behavior is calm, cooperative, appropriate kg for age, quiet. Pain: Complains of pain in lateral aspect of right knee, posterior aspect of right knee, medial aspect of right knee and right knee Pain radiates to right leg Pain currently is 8 out of 10 on a pain scale. at worst was 10 out of 10 on a pain scale. level that patient reports is acceptable is 3 out of 10 on a pain scale. Quality of pain is described as sharp, shooting. Neuro: No deficits noted. Cardiovascular: No deficits noted. Respiratory: No deficits noted. GI: No deficits noted. : No signs and/or symptoms were reported regarding the genitourinary system. EENT: No deficits noted. Derm: No deficits noted. Musculoskeletal: Range of motion: limited in right knee Reports pain in right leg. Vital Signs: 07:38 BP 134 / 95; Pulse 92; Resp 18; Temp 98.0; Pulse Ox 99% on R/A; Weight 86.18 kg; Height ph 5 ft. 5 in. (165.10 cm); Pain 7/10; 07:45 BP 133 / 90; Pulse 90; Resp 20; Pulse Ox 98% ; kg 08:45 BP 125 / 88; Pulse 84; Resp 20; Pulse Ox 98% on R/A; kg 07:38 Body Mass Index 31.62 (86.18 kg, 165.10 cm) ph ED Course: 07:34 Patient arrived in ED. am2 07:34 Aman Quintanilla MD is Private Physician. am2 07:39 Triage completed. ph 07:40 Arm band placed on Patient placed in an exam room, on a stretcher. ph 07:42 Bed in low position. Call light in reach. Adult w/ patient. Pulse ox on. NIBP on. tw2 07:44 Tye Pires MD is Attending Physician. julianna 07:45 Ana Maria Jones, RN is Primary Nurse. kg 08:14 Knee Right 3 View XRAY In Process Unspecified. EDMS 08:26 Aman Quintanilla MD is Referral Physician. julianna 08:26 Pito Charles MD is Referral Physician. julianna 08:26 Referral Physician role handed off by Pito Charles MD julianna 08:26 Israel Salhe MD is Referral Physician. julianna 08:30 Crutch training done. Knee immobilizer and ice applied to right knee. kg 08:56 No provider procedures requiring assistance completed. Patient did not have IV access kg during this emergency room visit. Administered Medications: 08:45 Drug: Motrin (ibuprofen) 600 mg Route: PO; kg 08:57 Follow up: Response: No adverse reaction kg Outcome: 08:27 Discharge ordered by . julianna 08:56 Discharged to home ambulatory, with crutches. kg 08:56 Condition: good 08:56 Discharge instructions given to patient, Instructed on discharge instructions, follow up and referral plans. Demonstrated understanding of instructions, follow-up care, medications, Prescriptions given X 1. 08:57 Patient left the ED. kg Signatures: Dispatcher [employer] Tye Noonan MD MD cha Hall, Patricia, RN RN Mary Dia RN RN 2 Chelle Becerra Kristen, MAGDALENA RN kg
--- NOTE | 2020-11-19 08:28 | EDPHYS ---
Physician Documentation [facility] Name: Mac Colón Age: 50 yrs Sex: Male : 1970 Arrival Date: 11/19/2020 Time: 07:34 Bed 5 Private MD: Aman Quintanilla R ED Physician Tye Pires HPI: 11/19 08:23 This 50 yrs old Male presents to ER via Wheelchair with complaints of Fall julianna Injury, Knee Pain. 08:23 Details of fall: The patient fell from an upright position, while standing. Onset: The julianna symptoms/episode began/occurred 1 day(s) ago. Associated injuries: The patient sustained right knee, decreased range of motion, painful injury, swelling. Severity of symptoms: At their worst the symptoms were mild, yesterday, in the emergency department the symptoms are unchanged. The patient has not experienced similar symptoms in the past. Historical: - Allergies: 07:39 No Known Allergies; ph - Home Meds: 07:39 losartan Oral [Active]; ph - PMHx: 07:39 Hypertension; Diabetes mellitus; ph - Immunization history:: Client reports having NOT received the Covid vaccine. - Social history:: Smoking status: Patient reports the use of cigarette tobacco products, smokes one-half pack cigarettes per day. - Family history:: not pertinent. ROS: 08:23 Constitutional: Negative for fever, chills, and weight loss, Eyes: Negative for injury, julianna pain, redness, and discharge, ENT: Negative for injury, pain, and discharge, Neck: Negative for injury, pain, and swelling, Cardiovascular: Negative for chest pain, palpitations, and edema, Respiratory: Negative for shortness of breath, cough, wheezing, and pleuritic chest pain, Abdomen/GI: Negative for abdominal pain, nausea, vomiting, diarrhea, and constipation, Back: Negative for injury and pain, : Negative for injury, bleeding, discharge, and swelling, Skin: Negative for injury, rash, and discoloration, Neuro: Negative for headache, weakness, numbness, tingling, and seizure, Psych: Negative for depression, anxiety, suicide ideation, homicidal ideation, and hallucinations, Allergy/Immunology: Negative for hives, rash, and allergies, Endocrine: Negative for neck swelling, polydipsia, polyuria, polyphagia, and marked weight changes, Hematologic/Lymphatic: Negative for swollen nodes, abnormal bleeding, and unusual bruising. 08:23 MS/extremity: Positive for decreased range of motion, pain, tenderness, of the right knee. Exam: 08:23 Constitutional: This is a well developed, well nourished patient who is awake, alert, julianna and in no acute distress. Head/Face: Normocephalic, atraumatic. Eyes: Pupils equal round and reactive to light, extra-ocular motions intact. Lids and lashes normal. Conjunctiva and sclera are non-icteric and not injected. Cornea within normal limits. Periorbital areas with no swelling, redness, or edema. ENT: Nares patent. No nasal discharge, no septal abnormalities noted. Tympanic membranes are normal and external auditory canals are clear. Oropharynx with no redness, swelling, or masses, exudates, or evidence of obstruction, uvula midline. Mucous membranes moist. Neck: Trachea midline, no thyromegaly or masses palpated, and no cervical lymphadenopathy. Supple, full range of motion without nuchal rigidity, or vertebral point tenderness. No Meningismus. Chest/axilla: Normal chest wall appearance and motion. Nontender with no deformity. No lesions are appreciated. Cardiovascular: Regular rate and rhythm with a normal S1 and S2. No gallops, murmurs, or rubs. Normal PMI, no JVD. No pulse deficits. Respiratory: Lungs have equal breath sounds bilaterally, clear to auscultation and percussion. No rales, rhonchi or wheezes noted. No increased work of breathing, no retractions or nasal flaring. Abdomen/GI: Soft, non-tender, with normal bowel sounds. No distension or tympany. No guarding or rebound. No evidence of tenderness throughout. Back: No spinal tenderness. No costovertebral tenderness. Full range of motion. Male : Normal genitalia with no discharge or lesions. Skin: Warm, dry with normal turgor. Normal color with no rashes, no lesions, and no evidence of cellulitis. Neuro: Awake and alert, GCS 15, oriented to person, place, time, and situation. Cranial nerves II-XII grossly intact. Motor strength 5/5 in all extremities. Sensory grossly intact. Cerebellar exam normal. Normal gait. Psych: Awake, alert, with orientation to person, place and time. Behavior, mood, and affect are within normal limits. 08:23 Musculoskeletal/extremity: Extremities: grossly normal except: noted in the right knee: decreased ROM, pain, swelling, tenderness, ROM: full active range of motion, full passive range of motion, Circulation is intact in all extremities. Sensation intact. Compartment Syndrome exam of affected extremity: is normal. Joints: All joints are normal except the right knee displays limited range of motion, painful range of motion, swelling, Weight bearing: can bear weight with assistance only, uses walker, Tendon exam: specific tendon testing normal through active and passive range of motion DVT Exam: negative Homans' sign noted on exam, no appreciated bluish discoloration, no erythema, no increased warmth, pain, swelling, tenderness, Calves: are non-tender, have equal circumference. Vital Signs: 07:38 BP 134 / 95; Pulse 92; Resp 18; Temp 98.0; Pulse Ox 99% on R/A; Weight 86.18 kg; Height ph 5 ft. 5 in. (165.10 cm); Pain 7/10; 07:45 BP 133 / 90; Pulse 90; Resp 20; Pulse Ox 98% ; kg 08:45 BP 125 / 88; Pulse 84; Resp 20; Pulse Ox 98% on R/A; kg 07:38 Body Mass Index 31.62 (86.18 kg, 165.10 cm) ph MDM: 07:44 Patient medically screened. [facility] 11/19 07:44 Order name: Knee Right 3 View XRAY [facility] 11/19 07:44 Order name: Ice pack; Complete Time: 07:[address] [facility] 11/19 08:23 Order name: Knee Immobilizer; Complete Time: 08:[address] [facility] 11/19 08:23 Order name: Crutches; Complete Time: 08:37 julianna Administered Medications: 08:45 Drug: Motrin (ibuprofen) 600 mg Route: PO; kg 08:57 Follow up: Response: No adverse reaction kg Disposition Summary: 11/19/20 08:27 Discharge Ordered Location: Home julianna Problem: new julianna Symptoms: have improved julianna Condition: Stable julianna Diagnosis - Fall due to bumping against object julianna - Contusion of right knee julianna - Effusion, right knee julianna Followup: julianna - With: Aman Quintanilla MD - When: 2 - 3 days - Reason: Recheck today's complaints, Re-evaluation by your physician Followup: julianna - With: Pito Charles MD - When: 2 - 3 days - Reason: Recheck today's complaints, Continuance of care, Re-evaluation by your physician Followup: julianna - With: Israel Saleh MD - When: 2 - 3 days - Reason: Recheck today's complaints, Continuance of care, Re-evaluation by your physician Discharge Instructions: - Knee Effusion julianna - Acute Knee Pain, Adult [facility] - Discharge Summary Sheet tw2 - Knee Effusion, [id number] julianna - Acute Knee Pain, Adult, [id number] [facility] Forms: - Work release form tw2 - Medication Reconciliation Form [facility] - Thank You Letter [facility] - Antibiotic Education [facility] - Prescription Opioid Use [facility] Prescriptions: - Ibuprofen 600 mg Oral Tablet - take 1 tablet by ORAL route every 6 hours As needed take with food; 21 tablet; [facility] Refills: 0, Product Selection Permitted Signatures: Dispatcher [employer] Tye Noonan MD MD cha Hall, Patricia, RN RN Ana Maria Ziegler RN RN kg
[2020-11-19] MEDS ORDERED: IBUPROFEN 400 MG TAB ONE (09:00)
[2020-11-19] MEDS ORDERED: IBUPROFEN 200 MG TAB PO ONE (09:00)
[2020-11-19 09:03] VITALS: TEMP 98
[2020-11-19 09:04] VITALS: O2SAT 98
[2020-11-19 09:06] VITALS: BP 125/88
--- NOTE | 2020-11-19 09:24 | RAD REPORT ---
EXAM DESCRIPTION: RAD - Knee Right 3 View - 11/19/2020 8:14 am CLINICAL HISTORY: PAIN COMPARISON: No comparisons FINDINGS: A small suprapatellar joint effusion is present. Vertical defect in the patella laterally could represent a bipartite patella or a fracture. Suggest correlation with clinical point tenderness .
== END 2020-11-19 08:57 | disposition home or self-care (01) ==
LOC: ER 07:25
DX: S80.01XA Contusion of right knee, initial encounter (principal); M25.461 Effusion, right knee; W18.00XA Striking against unspecified object with subsequent fall, initial encounter; I10 Essential (primary) hypertension; F17.210 Nicotine dependence, cigarettes, uncomplicated
CPT/HCPCS: 99284

== ENCOUNTER 2024-01-16 14:07 | Inpatient (IN) | payer BC ==
[2024-01-16] MEDS ORDERED: ACETAMINOPHEN 500 MG TAB ONE (14:53)
[2024-01-16] MEDS ORDERED: NA CHLORIDE 0.9% 500 ML ONE (14:53)
[2024-01-16] MEDS ORDERED: NA CHLORIDE 0.9% 2,000 ML ONE (14:54)
[2024-01-16] MEDS ORDERED: VANCOMYCIN 1 GM/VIAL ONE (15:01)
[2024-01-16] MEDS ORDERED: PIPERACIL/TAZO 3.375 GM VIAL IV ONE (15:02)
[2024-01-16] MEDS ORDERED: NA CHLORIDE 0.9% 100 ML ONE (15:02)
[2024-01-16] MEDS ORDERED: NA CHLORIDE 0.9% 250 ML ONE (15:02)
[2024-01-16 15:09] LABS: Absolute Basophils 0.1 K/uL (0-0.5); Absolute Eosinophils 0.1 K/uL (0-0.5); Absolute Lymphocytes (CBC) 1.5 K/uL (0.7-4.9); Absolute Monocytes 1.3 K/uL (0.1-1.3); Absolute Neutrophil 9.1 K/uL (1.8-8.0); Basophils % 0.5 % (0-1.3); Eosinophils % 0.9 % (0-4.4); Hematocrit 40.2 % (39.6-49.0); Hemoglobin 13.4 g/dL (13.6-17.9); Lymphocytes % 12.1 % (15.3-44.8); MCH 28.7 pg (27.0-35.0); MCHC 33.4 g/dL (32.0-36.0); MCV 86.2 fL (80-100); MPV 7.7 fL (7.6-11.3); Neutrophils % 75.5 % (41.7-73.7); Platelets 255 thou/uL (152-406); RBC Red Blood Cell Count 4.66 M/uL (4.33-5.43); Red Cell Distribution Width 13.6 % (12.1-15.2)
[2024-01-16 15:13] LABS: PT Prothrombin Time 11.9 SECONDS (9.4-12.5); PTT, Activated Partial Thromb 31.8 SECONDS (24.3-36.9); Protime INR 1.06
[2024-01-16 15:20] LABS: Albumin 3.3 g/dL (3.4-5.0); Albumin/Globulin Ratio 0.8 (1.1-1.8); Anion Gap 10.7 mEq/L (5.0-15.0); Bilirubin Total 0.7 mg/dL (0.2-1.0); Globulin 4.4 g/dL (2.3-3.5); Potassium 3.7 mEq/L (3.5-5.1); Protein, Total 7.7 g/dL (6.4-8.2)
[2024-01-16 15:31] LABS: Specific Gravity 1.016 (1.005-1.030); Sqamous Epithelial None Seen /HPF (None Seen); Urine Bacteria <20 /HPF (<20); Urine Bilirubin NEGATIVE (Negative); Urine Blood Negative (Negative); Urine Clarity Clear (Clear); Urine Color Light-Yellow (Yellow); Urine Culture Reflex Order NOT NEEDED; Urine Glucose 4+ (Over) (Negative); Urine Ketones NEGATIVE (Negative); Urine Microscopic Reflex YN ORDER UMIC; Urine Nitrite NEGATIVE (Negative); Urine Protein 1+ (Negative); Urine RBC <5 /HPF (None Seen); Urine Urobilinogen Normal (Normal); Urine WBC <5 /HPF (<5)
--- NOTE | 2024-01-16 15:33 | RAD REPORT ---
EXAM DESCRIPTION: Ron Single View01/16/2024 3:27 pm CLINICAL HISTORY: Sepsis COMPARISON: 2017 FINDINGS: The lungs appear clear of acute infiltrate. The heart is normal size IMPRESSION: No acute abnormalities displayed
--- NOTE | 2024-01-16 15:44 | RAD REPORT ---
EXAM DESCRIPTION: RAD - Foot Left 3 View - 01/16/2024 3:28 pm CLINICAL HISTORY: Left Foot pain FINDINGS: Bony destruction involves first proximal phalanx. This likely indicates osteomyelitis. The re is likely a pathologic fracture present. No dislocation
--- NOTE | 2024-01-16 16:57 | ER ---
Nurse's Notes [facility] Name: Mac Colón Age: 53 yrs Sex: Male : 1970 Arrival Date: 01/16/2024 Time: 14:07 Bed 6 Private MD: Diagnosis: Osteomyelitis left foot, wound infection Presentation: 01/15 14:30 Chief complaint: Patient states: worsening left foot ulcers, states they have been kc6 there for a month but aren't getting better. Coronavirus screen: At this time, the client does not indicate any symptoms associated with coronavirus-19. Ebola Screen: No symptoms or risks identified at this time. Initial Sepsis Screen: Does the patient meet any 2 criteria? HR > 90 bpm. Does the patient have a suspected source of infection? No. Patient's initial sepsis screen is negative. Risk Assessment: Do you want to hurt yourself or someone else? Patient reports no desire to harm self or others. Onset of symptoms was January 16, 2024. 14:30 Method Of Arrival: Ambulatory kc 14:30 Acuity: QUAN 3 kc6 Historical: - Allergies: 14:31 No Known Allergies; kc6 - PMHx: 14:31 diabetes mellitus; Hyperlipidemia; Hypertension; kc6 - PSHx: 14:31 None; kc6 - Immunization history:: Adult Immunizations not up to date. - Infectious Disease History:: Denies. - Social history:: Smoking status: Patient/guardian denies using tobacco, the patient reports quitting approximately 1 years ago. Screenin:42 [facility] ED Fall Risk Assessment (Adult) History of falling in the last 3 months, tm6 including since admission No falls in past 3 months (0 pts) Confusion or Disorientation No (0 pts) Intoxicated or Sedated No (0 pts) Impaired Gait No (0 pts) Mobility Assist Device Used No (0 pt) Altered Elimination No (0 pt) Score/Fall Risk Level 0 - 2 = Low Risk Oriented to surroundings, Maintained a safe environment, Educated pt \\T\\ family on fall prevention, incl call for assistance when getting out of bed. Abuse screen: Denies threats or abuse. Denies injuries from another. Nutritional screening: No deficits noted. Tuberculosis screening: No symptoms or risk factors identified. Assessment: 14:42 General: Appears in no apparent distress. Behavior is calm, cooperative. Pain: tm6 Complains of pain in left foot Pain does not radiate. Pain currently is 10 out of 10 on a pain scale. Quality of pain is described as burning. Neuro: Level of Consciousness is awake, alert, obeys commands, Oriented to person, place, time, situation. Cardiovascular: Patient's skin is warm and dry. Rhythm is sinus tachycardia. Respiratory: Airway is patent Respiratory effort is even, unlabored, Respiratory pattern is regular, symmetrical. GI: No signs and/or symptoms were reported involving the gastrointestinal system. Abdomen is flat, non-distended. : No signs and/or symptoms were reported regarding the genitourinary system. EENT: No signs and/or symptoms were reported regarding the EENT system. Derm: Wound noted left foot Reports pain that is 10 out of 10 on a pain scale. Musculoskeletal: No signs and/or symptoms reported regarding the musculoskeletal system. 16:48 Reassessment: Patient and/or family updated on plan of care and expected duration. Pain tm6 level reassessed. Patient is alert, oriented x 3, equal unlabored respirations, skin warm/dry/pink. 18:48 Reassessment: report faxed to 4th floor. Attempted to confirm by phone call, no one tm6 answered at this time. 19:25 Reassessment: report given to MAGDALENA Sue. ha1 Vital Signs: 14:30 BP 102 / 61; Pulse 123; Resp 19 S; Temp 99.4(O); Pulse Ox 99% on R/A; Weight 86.18 kg kc6 (R); Height 5 ft. 5 in. (R); Pain 8/10; 15:24 BP 104 / 82; Pulse 99; Pulse Ox 99% on R/A; tm6 16:47 BP 100 / 65; Pulse 89; Pulse Ox 100% on R/A; tm6 17:21 BP 105 / 76; Pulse 83; Resp 16; Pulse Ox 97% on R/A; ph 19:23 BP 118 / 79; Pulse 75; Resp 17 S; Temp 97.4; Pulse Ox 99% on R/A; ha1 14:30 Body Mass Index 31.62 (86.18 kg, 165.1 cm) [facility] 14:30 Pain Scale: Adult [facility] ED Course: 14:11 Patient arrived in ED. ra3 14:22 Jeanine Strong MD is Attending Physician. sp3 14:31 Triage completed. kc6 14:31 Arm band placed on. kc6 14:42 Darci Dobson, MAGDALENA is Primary Nurse. tm6 14:42 Patient has correct armband on for positive identification. Placed in gown. Bed in low tm6 position. Call light in reach. Side rails up X 1. Provided Education on: use of call ballard. Client placed on continuous cardiac and pulse oximetry monitoring. NIBP monitoring applied. lay out former on. Pulse ox on. NIBP on. Sitter at bedside. Door closed. Noise minimized. Pillow given. 14:44 EKG completed in triage. Results shown to MD. tm6 14:48 Initial lab(s) drawn, by me, sent to lab. First set of blood cultures drawn by me. tm3 Inserted saline lock: 20 gauge in right antecubital area, using aseptic technique. 15:18 Urinalysis w/ reflexes Sent. tm6 15:29 Chest Single View XRAY In Process Unspecified. EDMS 15:29 Foot Left 3 View XRAY In Process Unspecified. EDMS 16:53 Aimee Song MD is Hospitalizing Provider. sp3 17:41 1741 CM met with patient at the bedside in ED exam room. Patient identified by name and ane . Demographic sheet confirmed. Patient reports he lives with his friend Emil in a first floor apartment. Mr. Colón states prior to admission, he performs ADLs independently, he has been using a "walking boot" and receiving wound care HH through [facility]. CM reached out to [facility] via [employer] to confirm status of services and inform of admission at 1815, awaiting response. Patient reports he does not have other DME, home oxygen or other medical services at this time. No MPOA in place at this time. Patient states his preferred plan is to return home and states Emil will be his transportation home. CM team will continue to follow and coordinate care. 19:50 No provider procedures requiring assistance completed. Patient admitted, IV remains in al5 place. Administered Medications: 15:18 Drug: Acetaminophen PO 1000 mg PO once Route: PO; tm6 17:30 Follow up: Response: No adverse reaction tm6 15:18 Drug: NS 0.9% IV (30 ml/kg) 30 ml/kg IV at bolus once; Sepsis Protocol Route: IV; Rate: tm6 bolus; Site: right antecubital; 17:31 Follow up: Response: No adverse reaction; IV Status: Completed infusion; IV Intake: tm6 2585ml 15:18 Drug: Piperacillin-Tazobactam IVPB 3.375 grams IVPB once over 60 mins; (mix in NS 100 tm6 mL) Route: IVPB; Infused Over: 60 mins; Site: right antecubital; 15:54 Follow up: Response: No adverse reaction; IV Status: Completed infusion; IV Intake: tm6 100ml 15:54 Drug: vancoMYCIN IVPB 1 grams IVPB once over 2 hrs Route: IVPB; Infused Over: 2 hrs; tm6 Site: right antecubital; 17:30 Follow up: Response: No adverse reaction; IV Status: Completed infusion; IV Intake: tm6 250ml Medication: 14:42 VIS not applicable for this client. tm6 Intake: 15:54 IV: 100ml; Total: 100ml. tm6 17:30 IV: 250ml; Total: 350ml. tm6 17:31 IV: 2585ml; Total: 2935ml. tm6 Outcome: 16:56 Decision to Hospitalize by Provider. sp3 19:50 Admitted to Med/surg accompanied by tech, via wheelchair, room 403, with chart, al5 19:50 Condition: good 19:50 Instructed on the need for admit, 19:51 Patient left the ED. al5 Signatures: Dispatcher [employer] EDMS Omkar Ashi tm3 Marlen Maxwell RN RN ph Patel, Setul, MD MD sp3 Ena Stapleton RN RN ha1 Beba Valente RN RN kc6 Darci Dobson RN RN tm6 Silke Middleton ra3 Chelle Baker RN RN al5 Tati Limon RN RN ane
--- NOTE | 2024-01-16 16:57 | EDPHYS ---
Physician Documentation [facility] Name: Mac Colón Age: 53 yrs Sex: Male : 1970 Arrival Date: 01/16/2024 Time: 14:07 Bed 6 Private MD: ED Physician Jeanine Strong HPI: 01/15 14:57 This 53 yrs old Male presents to ER via Ambulatory with complaints of Wound sp3 Check - left foot. 14:57 53-year-old male with a history of diabetes, hyperlipidemia, hypertension and left sp3 diabetic ulcer/wound presents to the ED with chief complaint worsening pain at the foot, discharge and foul odor coupled with generalized malaise. Symptoms have been a recurring and progressively getting worse over the last 48 hours. Patient brought in as a sepsis alert based on vital sign criteria Patient does endorse subjective fever. He denies headache, neck pain, chest pain, shortness of breath, abdominal pain, nausea, vomiting, diarrhea, syncope, rash, known sick contacts, travel history, prolonged immobilization, or any other signs or symptoms on ROS at this time.. Historical: - Allergies: 14:31 No Known Allergies; kc6 - PMHx: 14:31 diabetes mellitus; Hyperlipidemia; Hypertension; kc6 - PSHx: 14:31 None; kc6 - Immunization history:: Adult Immunizations not up to date. - Infectious Disease History:: Denies. - Social history:: Smoking status: Patient/guardian denies using tobacco, the patient reports quitting approximately 1 years ago. ROS: 14:58 Eyes: Negative for injury, pain, redness, and discharge, ENT: Negative for injury, sp3 pain, and discharge, Neck: Negative for injury, pain, and swelling, Respiratory: Negative for shortness of breath, cough, wheezing, and pleuritic chest pain, Abdomen/GI: Negative for abdominal pain, nausea, vomiting, diarrhea, and constipation, Back: Negative for injury and pain, Neuro: Negative for headache, weakness, numbness, tingling, and seizure, Psych: Negative for depression, anxiety, suicide ideation, homicidal ideation, and hallucinations, Allergy/Immunology: Negative for hives, rash, and allergies, 14:58 All other systems are negative, Exam: 14:58 Constitutional: This is a well developed, well nourished patient who is awake, alert, sp3 and in no acute distress. Head/Face: Normocephalic, atraumatic. Eyes: Pupils equal round and reactive to light, extra-ocular motions intact. Lids and lashes normal. Conjunctiva and sclera are non-icteric and not injected. Cornea within normal limits. Periorbital areas with no swelling, redness, or edema. Neck: Trachea midline, no thyromegaly or masses palpated, and no cervical lymphadenopathy. Supple, full range of motion without nuchal rigidity, or vertebral point tenderness. No Meningismus. Chest/axilla: Normal chest wall appearance and motion. Nontender with no deformity. No lesions are appreciated. Respiratory: Lungs have equal breath sounds bilaterally, clear to auscultation and percussion. No rales, rhonchi or wheezes noted. No increased work of breathing, no retractions or nasal flaring. Abdomen/GI: Soft, non-tender, with normal bowel sounds. No distension or tympany. No guarding or rebound. No evidence of tenderness throughout. Back: No spinal tenderness. No costovertebral tenderness. Full range of motion. 14:58 Cardiovascular: Rate: tachycardic, 14:58 Musculoskeletal/extremity: Left diabetic foot wound noted with malodorous discharge. 16:17 ECG was reviewed by the Attending Physician. EKG demonstrates sinus tachycardia at 110 sp3 bpm with normal intervals, normal QRS, normal axis, nonspecific diffuse ST/T changes without evidence of acute ischemia. Vital Signs: 14:30 BP 102 / 61; Pulse 123; Resp 19 S; Temp 99.4(O); Pulse Ox 99% on R/A; Weight 86.18 kg kc6 (R); Height 5 ft. 5 in. (R); Pain 8/10; 15:24 BP 104 / 82; Pulse 99; Pulse Ox 99% on R/A; tm6 16:47 BP 100 / 65; Pulse 89; Pulse Ox 100% on R/A; tm6 17:21 BP 105 / 76; Pulse 83; Resp 16; Pulse Ox 97% on R/A; ph 19:23 BP 118 / 79; Pulse 75; Resp 17 S; Temp 97.4; Pulse Ox 99% on R/A; ha1 14:30 Body Mass Index 31.62 (86.18 kg, 165.1 cm) kc6 14:30 Pain Scale: Adult kc6 MDM: 14:22 Patient medically screened. sp3 15:04 Data reviewed: vital signs, lab test result(s), EKG, radiologic studies. ED course: sp3 53-year-old male with left foot pain and probable sepsis from that. Patient meets sepsis criteria and 30 mill liters per kilogram of normal saline bolus coupled with cultures, lactate and antibiotics have all been ordered. Patient has already received some fluids and reevaluation after fluid demonstrates heart rate now in the 100 range which is down from 123. Patient is clinically feeling improved and blood pressure is now 102/61. Will admit to internal medicine once laboratory data reviewed and remainder of workup complete.. 01/15 14:39 Order name: Blood Culture Adult (2) [facility] 01/15 14:39 Order name: CBC with Diff; Complete Time: 15:34 [facility] 01/15 14:39 Order name: CMP; Complete Time: 15:34 [facility] 01/15 14:39 Order name: Lactate w/ 2H reflex if indic.; Complete Time: 15:34 [facility] 01/15 14:39 Order name: Protime (+inr); Complete Time: 15:34 [facility] 01/15 14:39 Order name: Ptt, Activated; Complete Time: 15:34 [facility] 01/15 14:39 Order name: Urinalysis w/ reflexes; Complete Time: 15:34 [facility] 01/15 18:19 Order name: CBC with Automated Diff EDMS 01/15 18:19 Order name: CBC with Automated Diff EDMS 01/15 18:19 Order name: CBC with Automated Diff EDMS 01/15 18:19 Order name: CBC with Automated Diff EDMS 01/15 18:19 Order name: Comprehensive Metabolic Panel EDMS 01/15 18:19 Order name: Comprehensive Metabolic Panel EDMS 01/15 18:19 Order name: Comprehensive Metabolic Panel EDMS 01/15 18:19 Order name: Comprehensive Metabolic Panel EDMS 01/15 18:19 Order name: Lipid Profile EDMS 01/15 18:19 Order name: Lipid Profile EDMS 01/15 18:19 Order name: Magnesium EDMS 01/15 18:19 Order name: Magnesium EDMS 01/15 18:19 Order name: Magnesium EDMS 01/15 18:19 Order name: Magnesium EDMS 01/15 14:39 Order name: Chest Single View XRAY; Complete Time: 16:10 sp3 01/15 14:39 Order name: Foot Left 3 View XRAY; Complete Time: 16:10 sp3 01/15 17:02 Order name: Foot Left Wo Cont EDMI 01/15 14:39 Order name: EKG; Complete Time: 14:39 sp3 01/15 18:19 Order name: CONS Physician Consult EDMI 01/15 14:39 Order name: Accucheck; Complete Time: 14:45 sp3 01/15 14:39 Order name: Cardiac monitoring; Complete Time: 14:45 sp3 01/15 14:39 Order name: EKG - Nurse/Tech; Complete Time: 14:43 sp3 01/15 14:39 Order name: IV Saline Lock - Large Bore; Complete Time: 14:45 sp3 01/15 14:39 Order name: Labs collected and sent; Complete Time: 14:45 sp3 01/15 14:39 Order name: O2 Per Protocol; Complete Time: 14:45 sp3 01/15 14:39 Order name: O2 Sat Monitoring; Complete Time: 14:45 sp3 01/15 14:39 Order name: Vital Signs; Complete Time: 14:43 sp3 01/15 15:06 Order name: Recheck VS; Complete Time: 15:24 sp3 01/15 15:07 Order name: Misc. Order: unwrap left foot dressing; Complete Time: 15:54 sp3 Administered Medications: 15:18 Drug: Acetaminophen PO 1000 mg PO once Route: PO; tm6 17:30 Follow up: Response: No adverse reaction tm6 15:18 Drug: NS 0.9% IV (30 ml/kg) 30 ml/kg IV at bolus once; Sepsis Protocol Route: IV; Rate: tm6 bolus; Site: right antecubital; 17:31 Follow up: Response: No adverse reaction; IV Status: Completed infusion; IV Intake: tm6 2585ml 15:18 Drug: Piperacillin-Tazobactam IVPB 3.375 grams IVPB once over 60 mins; (mix in NS 100 tm6 mL) Route: IVPB; Infused Over: 60 mins; Site: right antecubital; 15:54 Follow up: Response: No adverse reaction; IV Status: Completed infusion; IV Intake: tm6 100ml 15:54 Drug: vancoMYCIN IVPB 1 grams IVPB once over 2 hrs Route: IVPB; Infused Over: 2 hrs; tm6 Site: right antecubital; 17:30 Follow up: Response: No adverse reaction; IV Status: Completed infusion; IV Intake: tm6 250ml Disposition Summary: 01/16/24 16:56 Hospitalization Ordered Notes: Hospitalization Status: Inpatient Admission sp3 Provider: Aimee Song sp3 Condition: Stable sp3 Problem: an acute exacerbation sp3 Symptoms: have worsened sp3 Bed/Room Type: Standard sp3 Location: Telemetry/MedSurg (Inpatient)(01/16/24 18:36) bd Room Assignment: 403(01/16/24 18:36) bd Diagnosis - Osteomyelitis left foot, wound infection sp3 Forms: - Medication Reconciliation Form sp3 - SBAR form sp3 - Leadership Thank You Letter sp3 Signatures: Dispatcher [employer] EDLuisa Haskins Setul, MD MD sp3 Beba Valente RN RN 6 Darci Dobson RN RN tm6 Corrections: (The following items were deleted from the chart) 17:50 16:56 Telemetry/MedSurg (Inpatient) sp3 bd 17:50 16:56 sp3 bd 18:36 17:50 [facility] ER HOLD bd bd 18:36 17:50 ERHOLD- bd bd
--- NOTE | 2024-01-16 18:08 | P.HP ---
Certification for Inpatient Patient admitted to: Inpatient With expected LOS: >2 Midnights Patient will require the following post-hospital care: None Practitioner: I am a practitioner with admitting privileges, knowledge of patient current condition, hospital course, and medical plan of care. Services: Services provided to patient in accordance with Admission requirements found in Title 42 Section 412.3 of the Code of Federal Regulations <Megan Marinolen - Last Filed: 01/16/24 19:31> Patient History Date of Service: 01/16/24 <Aimee Song - Last Filed: 01/16/24 19:20> Date of Service: 01/16/24 Reason for admission: Diabetic foot/osteomyelitis History of Present Illness: Mr. Colón is a 53-year-old male with a history of diabetes, hyperlipidemia, hypertension and left diabetic ulcer/wound presents to the ED with chief complaint worsening pain at the foot, discharge and foul odor coupled with generalized malaise. He has been having home health three times weekly for wound care to left 2-4 toes. Yesterday his third toe became thickened and changed color with discharge. On assessment in the ED, he was found to have osteomyelitis. He will be admitted for treatment with IV antibiotics, wound care, and with consult to Dr. Rico for operative management. Home medications list reviewed: Yes - Past Medical/Surgical History Has patient received pneumonia vaccine in the past: No Diabetic: Yes -: DMII -: HTN -: knee sx 1997 x2 -: Left axilla cyst removal -: Left plantar diabetic wound -: Hand surgery Psychosocial/ Personal History: Lives at home with his , has been having wound care 3 times weekly to the left foot with home health - Family History Father -: Diabetes - Social History Smoking Status: Former smoker Smoking therapy provided: No (Quit 1 year ago in February 11) Alcohol use: No CD- Drugs: No Caffeine use: Yes Place of Residence: Home <Megan Marinolen - Last Filed: 01/16/24 19:31> Allergies No Known Allergies Allergy (Verified 02/16/23 14:24) Home Medications: Glimepiride 1 tab PO DAILY 08/22/22 Losartan Potassium 1 tab PO DAILY 08/22/22 Rosuvastatin [Crestor*] 1 tab PO DAILY 08/22/22 Review of Systems 10-point ROS is otherwise unremarkable General: Chills Musculoskeletal: Foot Pain Integumentary: As per HPI <Megan Marino - Last Filed: 01/16/24 19:31> Physical Examination - Studies Laboratory Data (last 24 hrs) 01/16/24 01/16/24 01/16/24 14:50 14:50 14:50 WBC 12.00 H Hgb 13.4 L Hct 40.2 Plt Count 255 PT 11.9 INR 1.06 APTT 31.8 Sodium 135 L Potassium 3.7 BUN 28 H Creatinine 2.83 H Glucose 271 H Total Bilirubin 0.7 AST 55 H ALT 50 Alkaline Phosphatase 122 H <NohemiGoldumer Da Silva - Last Filed: 01/16/24 19:20> - Physical Exam General: Alert, In no apparent distress, Oriented x3 HEENT: Atraumatic, Normocephalic Neck: Supple Respiratory: Clear to auscultation bilaterally, Normal air movement Cardiovascular: No edema, Regular rate/rhythm, Normal S1 S2 Capillary refill: <2 Seconds Gastrointestinal: Normal bowel sounds, Soft and benign Musculoskeletal: No clubbing, Other (Edema and discharge from left third toe) Integumentary: Skin breakdown, Tenderness/swelling, Warmth, Other (Thickening and discharge with erythema to 2nd through 4th toes most severe at third toe, previous wound care between second and third and between third and fourth toes and plantar surface under third toe) Neurological: Normal speech, Normal tone, Normal affect Lymphatics: No axilla or inguinal lymphadenopathy External genitalia: Deferred Rectal: Deferred - Studies Laboratory Data (last 24 hrs) 01/16/24 01/16/24 01/16/24 14:50 14:50 14:50 WBC 12.00 H Hgb 13.4 L Hct 40.2 Plt Count 255 PT 11.9 INR 1.06 APTT 31.8 Sodium 135 L Potassium 3.7 BUN 28 H Creatinine 2.83 H Glucose 271 H Total Bilirubin 0.7 AST 55 H ALT 50 Alkaline Phosphatase 122 H <Megan Marino - Last Filed: 01/16/24 19:31> Assessment and Plan Physician Review Additional Text: Pt seen and examined. I agree with the note by the FILAMENT TESTER. Pt is a 53 yo male with past medical history of DM II, Htn, and HLD who presents with left foot diabetic ulcer/ wound. Pt noticed more pain, drainage and foul odor to the left foot wound which prompted him to come to the ER for evaluation. The symptoms are also associated with fever. On admission, lab studies show wbc 12, Hgb 13.4, K 3.7, Cr 2.83, glucose 271.At bedside, pt is in NAD. A/P: Sepsis 2/2 left foot osteomyelitis: Will continue iv abx and f/u blood and wound cx. Consulted Gen surgeon. X-ray of the foot shows bony destruction involves first proximal phalanx. This likely indicates osteomyelitis. Will f/u MRI of left foot DM II: Continue accuchek, SSI, Lantus 20u qhs, and ADA diet Htn: Continue home med HLD: continue statin DVT ppx: SCD Code: full <Aimee Song - Last Filed: 01/16/24 19:20> - Plan Osteomyelitis of the left 2nd through 4th toes Consult Dr. Rico -done MRI left foot Patient has had recent bilateral venous Dopplers IV antibiotics Local wound care N.p.o. past midnight Diabetes with HOOD second to infection Glucose monitoring with SSI Monitor and trend Avoid nephrotoxic drugs Gentle hydration Hypertension Continue losartan 50 mg p.o. daily Hyperlipidemia Continue rosuvastatin 20 mg p.o. daily VTE/GI prophylaxis Discharge Plan: Home Plan to discharge in: Greater than 2 days - Advance Directives Does patient have a Living Will: No Does patient have a Durable POA for Healthcare: No - Code Status/Comfort Care Code Status Assessed: Yes (Full) <Megan Marino - Last Filed: 01/16/24 19:31>
[2024-01-16] MEDS ORDERED: SODIUM CHLORIDE 0.9% 10ML INJ IV PRN (18:09)
[2024-01-16] MEDS: VANCOMYCIN 1 GM in NA CHLORIDE 0.9% 250 ML IVPB SCH (18:15)
--- NOTE | 2024-01-16 19:32 | RAD REPORT ---
EXAM DESCRIPTION: MRI - Foot Left Wo Cont - 01/16/2024 7:17 pm CLINICAL HISTORY: Foot pain and swelling COMPARISON: X-ray January 16, 2024 TECHNIQUE: Axial, sagittal and coronal magnetic resonance imaging left foot FINDINGS: Abnormal signal involves all the first proximal phalanx. Mildly displaced subacute fractur e. Abnormal signal adjacent sesamoid consistent osteomyelitis Abnormal signal involves all third proximal phalanx and third middle phalanx. Abnormal signal involves fourth proximal phalanx and portion fourth middle phalanx Additional apparent abnormal signal probably is artifactual. IMPRESSION: Osteomyelitis first proximal phalanx with fracture Osteomyelitis third and fourth digits
[2024-01-16] MEDS: ROSUVASTATIN 10 MG TAB PO SCH (20:17)
[2024-01-16] MEDS: ENOXAPARIN 40 MG/0.4 ML SQ SCH (20:17)
[2024-01-16] MEDS: NA CHLORIDE 0.9% 1,000 ML IV SCH (20:17)
[2024-01-16] MEDS: VANCOMYCIN 1.25 GM in NA CHLORIDE 0.9% 250 ML IVPB ONE (20:18)
[2024-01-16] MEDS: HYDROCODONE/APAP 5/325 MG TAB PO PRN (21:08)
[2024-01-17] MEDS: INSULIN REGULAR (HUMAN) 100 UNIT/ML SQ SCH
[2024-01-17] MEDS: PIPER TAZO 3.375 GM in NA CHLORIDE 0.9% 100 ML IV SCH (00:42)
[2024-01-17 07:20] LABS: Absolute Eosinophils 0.3 K/uL (0-0.5); Absolute Lymphocytes (CBC) 1.8 K/uL (0.7-4.9); Absolute Monocytes 1.2 K/uL (0.1-1.3); Absolute Neutrophil 4.8 K/uL (1.8-8.0); Basophils % 0.5 % (0-1.3); Eosinophils % 3.4 % (0-4.4); Hemoglobin 12.6 g/dL (13.6-17.9); Lymphocytes % 22.2 % (15.3-44.8); MCH 28.6 pg (27.0-35.0); MCHC 33.2 g/dL (32.0-36.0); MCV 86.2 fL (80-100); MPV 7.6 fL (7.6-11.3); Monocytes % 14.3 % (3.3-12.3); Neutrophils % 59.6 % (41.7-73.7); Platelets 270 thou/uL (152-406); RBC Red Blood Cell Count 4.41 M/uL (4.33-5.43); Red Cell Distribution Width 13.6 % (12.1-15.2)
[2024-01-17 07:38] LABS: Albumin 2.9 g/dL (3.4-5.0); Albumin/Globulin Ratio 0.8 (1.1-1.8); Bilirubin Total 0.5 mg/dL (0.2-1.0); Globulin 3.8 g/dL (2.3-3.5); Magnesium 2.1 mg/dL (1.6-2.4); Protein, Total 6.7 g/dL (6.4-8.2)
[2024-01-17] MEDS ORDERED: propofoL 200 MG/20 ML VIAL IV ONE (08:53)
[2024-01-17] MEDS ORDERED: FENTANYL CITR 100 MCG/2 ML ONE (08:53)
[2024-01-17] MEDS ORDERED: MIDAZOLAM HCL 2 MG/2 ML INJ ONE (08:53)
[2024-01-17] MEDS ORDERED: LIDOCAINE 2% MPF 5 ML VIAL ONE (08:53)
[2024-01-17] MEDS ORDERED: ONDANSETRON 4 MG/2 ML VIAL ONE (08:53)
[2024-01-17] MEDS: LOSARTAN POTASSIUM 50 MG TABLET PO SCH ×2 (09:00→12:13)
[2024-01-17] MEDS: PANTOPRAZOLE 40 MG INJ IVP SCH ×2 (09:00→12:13)
[2024-01-17] MEDS: Mupirocin NASAL 2 APPL/1 GM TUBE NAS SCH ×2 (09:00→12:13)
[2024-01-17] MEDS: NA CHLORIDE 0.9% 1,000 ML ONE (09:10)
[2024-01-17] MEDS: COLLAGENASE 30 GM OINTMENT TOP ONE (09:15)
[2024-01-17] MEDS: HYDROMORPHONE HCL 1 MG/ML INJ ONE (09:22)
[2024-01-17] MEDS ORDERED: EPHEDRINE SULF 50 MG/ML VIAL ONE (09:38)
[2024-01-17] MEDS: BUPIVACAINE 0.5% PF 10 ML VIAL ONE (09:48)
--- NOTE | 2024-01-17 09:48 | PREOPCON ---
Date of Consultation: 01/16/2024 Chief Complaint: Left foot pain. History Of Present Illness: The patient is a 53-year-old gentleman whom [facility] with grade 1 diabetic wounds for the past month or so and patient was in his [facility] state of health, but about a day or 2 ago, he noticed that there was a foul odor, weakness, incre asing pain in the left foot. He came to the ER, was found to have osteomyelitis of his left first, t hird, and fourth toes. He also has a bad diabetic foot infection with probable loss of the third toe , multiple wounds in the web space on either side of the toes between the first and fifth toe. He de nies any fever at this time. Does have this some purulent drainage from the third toe area. The chris ramirez did have an arterial Doppler done a couple weeks ago and he was scheduled to see Dr. Valdez as he d oes have disease in the left leg and his appointment was for next week. However, given this infectio n, we need to address that first and then we will proceed with a vascular evaluation and intervention as needed. The patient denies any sore throat, runny nose, cough, headaches, or dizziness. No ches t pain. Review of Systems: Otherwise unremarkable. Past Medical History: Type 2 diabetes with neuropathy, hypertension. Past Surgical History: Knee surgery, left axilla cyst removal, left plantar diabetic wound. The chris ramirez used to smoke, quit about a year ago. Does not drink alcohol. Family History: Significant for diabetes. Physical Examination: Vital Signs: Currently are stable. He is afebrile. General: He is awake, alert, oriented x3. Head and Neck: No masses. Chest: Clear. Heart: S1, S2. Abdomen: Soft. Extremities: Diminished dorsalis pedis and posterior tibial pulses on the left side. In the third t oe, there is significant amount of swelling, purulence on the dorsum, some early gangrenous changes. Foul odor is present around the toe. There are multiple wounds in the web spaces between the first and fifth toes ranging in size from 5 mm to 2 cm with necrotic fibrin being present. Lateral macerat ions are noted. There is erythema, warmth, and edema as well. Laboratory Data: Shows white count of 4000 with a left shift on admission. INR is 1.06. Lactic aci d was 1.3 on admission. He does have a GFR between 26 and 38 with elevation of BUN and creatinine. MRI report reviewed shows osteomyelitis of the first proximal phalanx with fracture and osteomyelitis of the third and fourth digits. Assessment: Left foot diabetic infection with a third toe being severely infected and nonviable. Recommendations: IV antibiotics for 6 weeks for treatment of the osteomyelitis on the first and four th toe but the third toe needs to be amputated. Transmetatarsal amputation would be appropriate and the wounds between the toes need to be debrided. Risks, benefits, and alternatives were explained to the patient. He understands and agrees to the procedure. /MODL Voice ID: [id number] Report ID: [id number]
[2024-01-17] MEDS: MEDIHONEY 44 ML TOPICAL TUBE TOP ONE (10:14)
--- NOTE | 2024-01-17 10:52 | P.OP ---
Date of Service: 01/17/24 Preop diagnosis: Diabetic foot infection on the left side with osteomyelitis of the first third and fourth toes and multiple nonhealing wounds Postop diagnosis: Same Procedure performed: Left third toe transmetatarsal amputation and debridement of left foot wounds x 4 to subcutaneous tissue 2 of them were 1 cm in diameter and 2 were 2 cm Surgeon: Lawson Rico MD Set Up Mechanic Automatic Line: None Estimated blood loss: Minimal Specimen: Culture and sensitivity, infected bone Findings: As above Anesthesia: General None Complications: Drains: None Fluids and blood products: Nonapplicable Disposition: Recovery room Operative note: Patient brought to the OR and placed in supine position. General anesthesia began. Patient prepped and draped in the usual sterile fashion. Marcaine 0.5% infiltrated for postop pain control. Then sharp dissection to place at the base of the third toe down to the dorsum of the foot and around the toe. There was pus oozing from the toe cultures were done. Entire toe was removed down to the metatarsal head. Bleeding was controlled with cautery. The metatarsal head was debrided with a rongeur. And rasp was used to smooth out the rough edges. There were 2 wounds on the medial aspect of the second toe and the third toe. There were 2 other wounds between the medial and lateral aspect of the fourth toe. All 4 wounds were debrided to subcutaneous level. 2 wounds were 1 cm in diameter and 2 wounds were 2 cm in diameter. Wound irrigated bleeding controlled cautery. Medihoney dressing applied with gauze Kerlix and Jaden. Patient tolerated procedure in stable condition taken to recovery room in good general condition. CC:
[2024-01-17] MEDS ORDERED: HYDROMORPHONE HCL 1 MG/ML INJ IV PRN (10:53)
[2024-01-17 11:04] VITALS: O2SAT 96
--- NOTE | 2024-01-17 11:09 | P.PN ---
Subjective Date of Service: 01/17/24 Chief Complaint: Diabetic foot/osteomyelitis Subjective: No new changes <Megan Marinolen - Last Filed: 01/17/24 11:06> Date of Service: 01/17/24 <Aimee Song - Last Filed: 01/17/24 11:12> Review of Systems 10-point ROS is otherwise unremarkable <Megan Marinolen - Last Filed: 01/17/24 11:06> Physical Examination - Vital Signs Temperature: 97.5 F Blood Pressure: 114/76 Pulse: 81 Respirations: 16 Pulse Ox (%): 96 - Physical Exam General: Alert, In no apparent distress, Oriented x3 HEENT: Atraumatic, Normocephalic, PERRLA Neck: Supple Respiratory: Normal air movement Cardiovascular: Normal pulses, Regular rate/rhythm, Normal S1 S2 Capillary refill: <2 Seconds Gastrointestinal: Normal bowel sounds Musculoskeletal: Other (left 2-4th toes with diabetic wounds, third digit osteo) Integumentary: Other (pus oozing from 3rd toe. Pt to go to OR today) Neurological: Normal speech, Normal tone, Normal affect Lymphatics: No axilla or inguinal lymphadenopathy External genitalia: Deferred Rectal: Deferred - Studies Laboratory Data (last 24 hrs) 01/16/24 01/16/24 01/16/24 14:50 14:50 14:50 WBC 12.00 H Hgb 13.4 L Hct 40.2 Plt Count 255 PT 11.9 INR 1.06 APTT 31.8 Sodium 135 L Potassium 3.7 BUN 28 H Creatinine 2.83 H Glucose 271 H Total Bilirubin 0.7 AST 55 H ALT 50 Alkaline Phosphatase 122 H <Megan Marinolen - Last Filed: 01/17/24 11:06> - Studies Laboratory Data (last 24 hrs) 01/16/24 01/16/24 01/16/24 14:50 14:50 14:50 WBC 12.00 H Hgb 13.4 L Hct 40.2 Plt Count 255 PT 11.9 INR 1.06 APTT 31.8 Sodium 135 L Potassium 3.7 BUN 28 H Creatinine 2.83 H Glucose 271 H Total Bilirubin 0.7 AST 55 H ALT 50 Alkaline Phosphatase 122 H <Aimee Song - Last Filed: 01/17/24 11:12> Assessment And Plan - Plan Osteomyelitis of the left 2nd through 4th toes Consult Dr. Rico -loni, Pt to OR today MRI left foot - + osteo Patient has had recent bilateral venous Dopplers IV antibiotics Local wound care N.p.o. past midnight Diabetes with HOOD second to infection Glucose monitoring with SSI Monitor and trend 2.83 to 2.05 today 01/18/24 Avoid nephrotoxic drugs Gentle hydration Hypertension Continue losartan 50 mg p.o. daily Hyperlipidemia Continue rosuvastatin 20 mg p.o. daily VTE/GI prophylaxis Time Spent Managing PTS Care (In Minutes): 27 <Megan Marino - Last Filed: 01/17/24 11:06> - Plan Pt seen and examined. I agree with the note by the JOINERY MACHINIST. Pt had osteomyelitis in left foot. Gen surgeon will take him to the OR today. Continue iv abx. Continue home med for other chronic medical problems. <Aimee Song - Last Filed: 01/17/24 11:12>
--- NOTE | 2024-01-17 13:48 | RAD REPORT ---
EXAM DESCRIPTION: RAD - Chest Single View - 01/17/2024 1:42 pm CLINICAL HISTORY: PICC placement Verification COMPARISON: Chest Single View dated 01/16/2024; Chest Pa And Lat (2 Views) dated 05/21/2018 FINDINGS: Portable chest was obtained following placement of a left upper extremity PICC line. The c atheter tip projects over the SVC.
[2024-01-18] MEDS: VANCOMYCIN 1.5 GM in NA CHLORIDE 0.9% 500 ML IVPB SCH (04:26)
[2024-01-18] MEDS: INSULIN REGULAR (HUMAN) 100 UNIT/ML SQ SCH (07:30)
[2024-01-18 08:01] LABS: Albumin/Globulin Ratio 0.8 (1.1-1.8); Anion Gap 10.2 mEq/L (5.0-15.0); Bilirubin Total 0.5 mg/dL (0.2-1.0); Magnesium 2.3 mg/dL (1.6-2.4); Potassium 4.2 mEq/L (3.5-5.1)
[2024-01-18 08:19] LABS: Absolute Lymphocytes (CBC) 1.5 K/uL (0.7-4.9); Absolute Monocytes 1.2 K/uL (0.1-1.3); Basophils % 0.4 % (0-1.3); Eosinophils % 0.4 % (0-4.4); Hematocrit 38.5 % (39.6-49.0); Hemoglobin 12.7 g/dL (13.6-17.9); Lymphocytes % 14.2 % (15.3-44.8); MCH 28.8 pg (27.0-35.0); MCHC 32.9 g/dL (32.0-36.0); MCV 87.5 fL (80-100); MPV 7.7 fL (7.6-11.3); Monocytes % 11.4 % (3.3-12.3); Neutrophils % 73.6 % (41.7-73.7); Platelets 263 thou/uL (152-406); RBC Red Blood Cell Count 4.39 M/uL (4.33-5.43); Red Cell Distribution Width 13.4 % (12.1-15.2)
--- NOTE | 2024-01-18 11:54 | PN ---
Date of Progress Note: 01/18/2024 Subjective: The patient is awake, alert. No complaint. Vitals stable, afebrile. White count is no rmal. Cultures are pending. Gram stain is pending. Objective: Vital Signs: Stable, afebrile. Skin: Examination of the wound reveals minimal bleeding. No evidence of any active infection. No p urulence. Redness and swelling have gone down. Assessment: Status post left foot third toe transmetatarsal amputation, and debridement of multiple wounds. Recommendations: Continue wound care as ordered with Jose Guadalupe. Await culture and sensitivities to decide which antibiotics would be appropriate for the treatment of osteomyelitis in the first and fou rth toes. Plan of care discussed in detail with the patient. IONA/BLAKE Voice ID: [id number] Report ID: [id number]
--- NOTE | 2024-01-18 12:58 | EKG ---
Test Date: 2024-01-16 Test Time: 14:36:28 Yoga Instructor: KIRIT MEASUREMENT RESULTS: Intervals: Rate: 109 NC: 150 QRSD: 80 QT: 318 QTc: 428 [place]: P: 67 NC: 150 QRS: 76 T: 37 INTERPRETIVE STATEMENTS: Sinus tachycardia Otherwise normal ECG Compared to ECG 08/22/2022 15:05:42 Sinus rhythm no longer present Electronically Signed On 01-18-24 12:55:43 CDT by Ankush Blanco
--- NOTE | 2024-01-18 13:52 | P.PN ---
Subjective Date of Service: 01/18/24 Chief Complaint: Diabetic foot/osteomyelitis Pt is resting comfortably in bed. Pt is feeling better s/p 3rd toe amputation. Will continue iv abx. Waiting for culture sensitivity. No other complaints. Review of Systems General: Unremarkable Eyes: Unremarkable ENT: Unremarkable Respiratory: Unremarkable Cardiovascular: Unremarkable Gastrointestinal: Unremarkable Genitourinary: Unremarkable Musculoskeletal: Unremarkable Integumentary: Unremarkable Neurological: Unremarkable Lymphatics: Unremarkable Physical Examination - Vital Signs Temperature: 98.2 F Blood Pressure: 114/72 Pulse: 74 Respirations: 18 Pulse Ox (%): 93 - Physical Exam General: Alert, In no apparent distress, Oriented x3 HEENT: Atraumatic, Normocephalic, PERRLA Neck: Supple, 2+ carotid pulse no bruit, JVD not distended Respiratory: Clear to auscultation bilaterally, Normal air movement Cardiovascular: No edema, Normal pulses, Regular rate/rhythm, Normal S1 S2 Capillary refill: <2 Seconds Gastrointestinal: Normal bowel sounds, Soft and benign, Non-distended Musculoskeletal: No clubbing, No swelling, No contractures, Other (s/p 3rd toe amputation) Integumentary: No rashes, No breakdown, No significant lesion Neurological: Normal gait, Normal speech, Normal strength at 5/5 x4 extr Lymphatics: No axilla or inguinal lymphadenopathy Assessment And Plan - Plan Osteomyelitis of the left 2nd through 4th toes: S/p 3rd toe amputation. Will continue iv abx. Gen surgeon is following. Waiting for cx sensitivity. MRI left foot is positive for osteo Diabetes; Will continue accuchek, SSi and ADa diet. HOOD: Cr is 2.12 <- 2.83. Will continue IVF, avoid nephrotoxins and monitor renal function. Hypertension: Continue losartan 50 mg p.o. daily Hyperlipidemia: Continue rosuvastatin 20 mg p.o. daily DVT ppx: lovenox Dispo: pending hospital course.
[2024-01-18] MEDS: CEFTRIAXONE 2,000 MG in NA CHLORIDE 0.9% 100 ML IV SCH (14:12)
[2024-01-18 20:38] VITALS: BMI 31.4
[2024-01-19 06:14] LABS: Absolute Basophils 0.1 K/uL (0-0.5); Absolute Eosinophils 0.3 K/uL (0-0.5); Absolute Lymphocytes (CBC) 2.8 K/uL (0.7-4.9); Absolute Monocytes 0.8 K/uL (0.1-1.3); Absolute Neutrophil 3.9 K/uL (1.8-8.0); Basophils % 0.7 % (0-1.3); Eosinophils % 3.4 % (0-4.4); Hematocrit 38.2 % (39.6-49.0); Hemoglobin 12.8 g/dL (13.6-17.9); Lymphocytes % 35.1 % (15.3-44.8); MCH 28.9 pg (27.0-35.0); MCHC 33.4 g/dL (32.0-36.0); MCV 86.5 fL (80-100); MPV 7.6 fL (7.6-11.3); Monocytes % 10.7 % (3.3-12.3); Neutrophils % 50.1 % (41.7-73.7); Platelets 299 thou/uL (152-406); RBC Red Blood Cell Count 4.42 M/uL (4.33-5.43); Red Cell Distribution Width 13.5 % (12.1-15.2)
[2024-01-19 06:16] LABS: Albumin 2.9 g/dL (3.4-5.0); Albumin/Globulin Ratio 0.7 (1.1-1.8); Bilirubin Total 0.2 mg/dL (0.2-1.0); Globulin 4.2 g/dL (2.3-3.5); Magnesium 2.2 mg/dL (1.6-2.4); Protein, Total 7.1 g/dL (6.4-8.2)
--- NOTE | 2024-01-19 09:25 | P.DS ---
Admission Date: 01/16/24 Discharge Date: 01/19/24 Reason for Admission: Diabetic foot/osteomyelitis Consultations: Dr. Rico Procedures: Left third toe amputation and OR washout of proximal foot Brief History of Present Illness: Mr. Colón is a 53-year-old male with a history of diabetes, hyperlipidemia, hypertension and left diabetic ulcer/wound presents to the ED with chief complaint worsening pain at the foot, discharge and foul odor coupled with generalized malaise. He has been having home health three times weekly for wound care to left 2-4 toes. Yesterday his third toe became thickened and changed color with discharge. On assessment in the ED, he was found to have osteomyelitis. He will be admitted for treatment with IV antibiotics, wound care, and with consult to Dr. Rico for operative management. Hospital Course: Mr. Colón did well over the course of his hospitalization. He had his third left toe amputated with OR washout of the left distal foot. He will receive 2 g IV piggyback Rocephin via PICC x 6 weeks. His blood sugar has has been in good control, this morning 132 mg/dL . On admission he had some HOOD with a creatinine of 2.83 , this morning this is improved at 1.76. He will continue follow-up with his PCP and Dr. Rico. <Megan Marino - Last Filed: 01/19/24 16:04> Admission Date: 01/16/24 Discharge Date: 01/20/24 Hospital Course: Pt seen and examined. I agree with the note by the PROJECT ESTIMATOR. Ok to discharge pt dc pt with rocephin 2gm iv daily for 6 weeks. Follow up with PCP and Nephrology <Aimee Song - Last Filed: 01/20/24 21:50> Disposition: DC HOME/HOME HEALTH CARE Discharge Condition: GOOD Vital Signs/Physical Exam: Temp Pulse Resp BP Pulse Ox 97.6 F 73 16 123/85 98 01/19/24 08:00 01/19/24 08:00 01/19/24 08:37 01/19/24 08:00 01/19/24 08:00 General: Alert, In no apparent distress, Oriented x3 HEENT: Atraumatic, Normocephalic Neck: Supple Respiratory: Clear to auscultation bilaterally Cardiovascular: Normal pulses, Regular rate/rhythm Capillary refill: <2 Seconds Gastrointestinal: Soft and benign Musculoskeletal: No clubbing, Other (Left foot with surgical dressing clean dry and intact) Integumentary: No rashes Neurological: Normal speech, Normal tone, Normal affect Lymphatics: No axilla or inguinal lymphadenopathy External genitalia: Deferred Rectal: Deferred Laboratory Data at Discharge: WBC 7.90 thou/uL (4.3-10.9) 01/19/24 05:49 Hgb 12.8 g/dL (13.6-17.9) L 01/19/24 05:49 Hct 38.2 % (39.6-49.0) L 01/19/24 05:49 Plt Count 299 thou/uL (152-406) 01/19/24 05:49 PT 11.9 SECONDS (9.4-12.5) 01/16/24 14:50 INR 1.06 01/16/24 14:50 APTT 31.8 SECONDS (24.3-36.9) 01/16/24 14:50 Sodium 139 mEq/L (136-145) 01/19/24 05:49 Potassium 4.0 mEq/L (3.5-5.1) 01/19/24 05:49 BUN 26 mg/dL (7-18) H 01/19/24 05:49 Creatinine 1.76 mg/dL (0.70-1.30) H 01/19/24 05:49 Glucose 147 mg/dL (74-106) H 01/19/24 05:49 Magnesium 2.2 mg/dL (1.6-2.4) 01/19/24 05:49 Total Bilirubin 0.2 mg/dL (0.2-1.0) 01/19/24 05:49 AST 27 U/L (15-37) 01/19/24 05:49 ALT 47 U/L (16-61) 01/19/24 05:49 Alkaline Phosphatase 94 U/L (45-117) 01/19/24 05:49 Triglycerides 130 mg/dL (<150) 01/17/24 07:01 Cholesterol 137 mg/dL (<200) 01/17/24 07:01 HDL Cholesterol 40 mg/dL (40-60) 01/17/24 07:01 Cholesterol/HDL Ratio 3.43 01/17/24 07:01 <Marino,Megan Aubrey - Last Filed: 01/19/24 16:04> Vital Signs/Physical Exam: Temp Pulse Resp BP Pulse Ox 97.6 F 73 16 123/85 98 01/19/24 08:00 01/19/24 08:00 01/19/24 09:36 01/19/24 08:00 01/19/24 08:00 Laboratory Data at Discharge: WBC 7.90 thou/uL (4.3-10.9) 01/19/24 05:49 Hgb 12.8 g/dL (13.6-17.9) L 01/19/24 05:49 Hct 38.2 % (39.6-49.0) L 01/19/24 05:49 Plt Count 299 thou/uL (152-406) 01/19/24 05:49 PT 11.9 SECONDS (9.4-12.5) 01/16/24 14:50 INR 1.06 01/16/24 14:50 APTT 31.8 SECONDS (24.3-36.9) 01/16/24 14:50 Sodium 139 mEq/L (136-145) 01/19/24 05:49 Potassium 4.0 mEq/L (3.5-5.1) 01/19/24 05:49 BUN 26 mg/dL (7-18) H 01/19/24 05:49 Creatinine 1.76 mg/dL (0.70-1.30) H 01/19/24 05:49 Glucose 147 mg/dL (74-106) H 01/19/24 05:49 Magnesium 2.2 mg/dL (1.6-2.4) 01/19/24 05:49 Total Bilirubin 0.2 mg/dL (0.2-1.0) 01/19/24 05:49 AST 27 U/L (15-37) 01/19/24 05:49 ALT 47 U/L (16-61) 01/19/24 05:49 Alkaline Phosphatase 94 U/L (45-117) 01/19/24 05:49 Triglycerides 130 mg/dL (<150) 01/17/24 07:01 Cholesterol 137 mg/dL (<200) 01/17/24 07:01 HDL Cholesterol 40 mg/dL (40-60) 01/17/24 07:01 Cholesterol/HDL Ratio 3.43 01/17/24 07:01 <AnaisGold zarateumer Da Silva - Last Filed: 01/20/24 21:50> Diet: ADA Activity: Ad jemima <Megan Marino - Last Filed: 01/19/24 16:04> <Augustus Songdiego Da Silva - Last Filed: 01/20/24 21:50> Home Medications: Losartan Potassium 1 tab PO DAILY 08/22/22 Rosuvastatin [Crestor*] 1 tab PO DAILY 08/22/22 Pantoprazole [Protonix Tab*] 40 mg PO DAILY 01/16/24 Semaglutide [Ozempic] 2.5 mg SQ EVERY 7TH DAY 01/16/24 Oxycodone HCl/Acetaminophen [Percocet 5/325 Tab] 1 tab PO Q4H PRN 3 Days #18 tab 01/19/24 New Medications: Oxycodone HCl/Acetaminophen [Percocet 5/325 Tab] 1 tab PO Q4H PRN 3 Days #18 tab PRN Reason: Pain Physician Discharge Instructions: Home Health: [facility] Home Health P:[phone] F:[phone] Home IV antibiotics: [id number] [facility] [address], [place] [id number] P/ Tabitha: [phone] F Mr. Colón did well over the course of his hospitalization. He had his third left toe amputated with OR washout of the left distal foot. He will receive 2 g IV piggyback Rocephin via PICC x 6 weeks. His blood sugar has has been in good control, this morning 132 mg/dL . On admission he had some HOOD with a creatinine of 2.83 , this morning this is improved at 1.76. He will continue follow-up with Dr. Rico. Continue home medicines as previously prescribed GOAL: Clear understanding of disease process Diet: ADA, low sodium Activity: Fall precautions INSTRUCTIONS: Physician Discharge Instructions: Okay to DC IV and DC home Follow-up with primary care provider in 1 to 2 weeks Follow-up with Dr. Rico in 1 week Please call the inpatient unit for any questions or concerns regarding hospital stay Return to the ER for worsening symptoms Followup: Lee Lopez MD [Primary Care Provider] - 1-2 Weeks Lawson Rico MD [ACTIVE - CAN ADMIT] - 1 Week (Follow-up in the wound center in my clinic)
--- NOTE | 2024-01-19 11:45 | PN ---
Date of Progress Note: 01/19/2024 Subjective: The patient is awake, alert. No complaint. Vitals stable, afebrile. Cultures reviewed . Sensitivities pending. Blood work reviewed. Objective: Examination reveals the dressing to be clean, dry, intact. Assessment And Plan: Status post left third toe amputation. Once the sensitivities are verified and the patient has home health arranged from a surgical standpoint, he can be discharged and follow up in the [facility]. He was advised to keep his appointment with Dr. Song to have his carmela rial circulation evaluated by interventional radiologist. Dressing orders and IV antibiotics will be discussed with the Hospitalist Team prior to discharge when the sensitivities come back. /MODL Voice ID: [id number] Report ID: [id number]
[2024-01-19 15:41] VITALS: BP 106/76; TEMP 96.9
== END 2024-01-19 15:59 | disposition home health service (06) | DRG 854 ==
LOC: ER 14:07 → ERHOLD 18:09 → 4TH 18:41
PROVIDERS: ADMIT Hospitalist; ATTEND Hospitalist
PROC: 0JBR0ZZ Excision of Left Foot Subcutaneous Tissue and Fascia, Open Approach (ICD-10-PCS; 2024-01-17)
PROC: 02HV33Z Insertion of Infusion Device into Superior Vena Cava, Percutaneous Approach (ICD-10-PCS; 2024-01-17)
PROC: 0Y6U0Z0 Detachment at Left 3rd Toe, Complete, Open Approach (ICD-10-PCS; principal; 2024-01-17 09:00)
DX: A41.9 Sepsis, unspecified organism (principal); E11.52 Type 2 diabetes mellitus with diabetic peripheral angiopathy with gangrene; L03.116 Cellulitis of left lower limb; M86.172 Other acute osteomyelitis, left ankle and foot; N17.9 Acute kidney failure, unspecified; E11.69 Type 2 diabetes mellitus with other specified complication; E11.40 Type 2 diabetes mellitus with diabetic neuropathy, unspecified; E11.621 Type 2 diabetes mellitus with foot ulcer; L97.529 Non-pressure chronic ulcer of other part of left foot with unspecified severity; E78.5 Hyperlipidemia, unspecified; I10 Essential (primary) hypertension; Z87.891 Personal history of nicotine dependence; Z79.84 Long term (current) use of oral hypoglycemic drugs; Z79.899 Other long term (current) drug therapy
CPT/HCPCS: 36415; 71045; 80053; 80061; 80202; 81001; 82947; 83036; 83605; 83735; 85025; 85610; 85730; 87040; 87070; 87075; 87077; 87176; 87186; 87205; 88305; 88311; 93005; 96365; 96367; 96368; 97161; 99285; J0696; J1170; J1650; J2001; J2250; J2405; J2470; J2543; J2704; J3010; J3590; J7030; J7040; J7050

== ENCOUNTER 2024-09-18 10:23 | Inpatient (IN) | payer BC ==
--- NOTE | 2024-09-18 12:16 | EDPHYS ---
Physician Documentation [facility] Name: Mac Colón Age: 54 yrs Sex: Male : 1970 Arrival Date: 09/18/2024 Time: 10:23 Bed 25 Private MD: ED Physician Tye Pires HPI: 09/18 12:06 This 54 yrs old Male presents to ER via Ambulatory with complaints of Wound julianna Check - left leg/foot. 12:06 Patient presents to ED for recheck of: abscess, cellulitis. The affected area is on the julianna left foot. Previous treatment: Previous recheck: the patient's last recheck was 5 day(s) ago. Progress: The patient reports increased fever, pain, redness, swelling. The patient has experienced similar episodes in the past. Historical: - Allergies: 10:34 No Known Allergies; ll1 - PMHx: 10:34 diabetes mellitus; Hyperlipidemia; Hypertension; ll1 - PSHx: 10:34 toe amputation-L (Hypertension); ll1 - Immunization history:: Adult Immunizations up to date. - Infectious Disease History:: Denies. - Social history:: Smoking status: Patient/guardian denies using tobacco, the patient reports quitting approximately 2 years ago. ROS: 12:10 Constitutional: Negative for fever, chills, and weight loss, Eyes: Negative for injury, julianna pain, redness, and discharge, ENT: Negative for injury, pain, and discharge, Neck: Negative for injury, pain, and swelling, Cardiovascular: Negative for chest pain, palpitations, and edema, Respiratory: Negative for shortness of breath, cough, wheezing, and pleuritic chest pain, Abdomen/GI: Negative for abdominal pain, nausea, vomiting, diarrhea, and constipation, Back: Negative for injury and pain, : Negative for injury, bleeding, discharge, and swelling, Neuro: Negative for headache, weakness, numbness, tingling, and seizure, Psych: Negative for depression, anxiety, suicide ideation, homicidal ideation, and hallucinations, Allergy/Immunology: Negative for hives, rash, and allergies, Endocrine: Negative for neck swelling, polydipsia, polyuria, polyphagia, and marked weight changes, Hematologic/Lymphatic: Negative for swollen nodes, abnormal bleeding, and unusual bruising, 12:10 MS/extremity: Positive for injury or acute deformity, decreased range of motion, erythema, pain, swelling, tenderness, warmth, of the left foot and left leg, Exam: 12:10 Constitutional: This is a well developed, well nourished patient who is awake, alert, julianna and in no acute distress. Head/Face: Normocephalic, atraumatic. Eyes: Pupils equal round and reactive to light, extra-ocular motions intact. Lids and lashes normal. Conjunctiva and sclera are non-icteric and not injected. Cornea within normal limits. Periorbital areas with no swelling, redness, or edema. ENT: Nares patent. No nasal discharge, no septal abnormalities noted. Tympanic membranes are normal and external auditory canals are clear. Oropharynx with no redness, swelling, or masses, exudates, or evidence of obstruction, uvula midline. Mucous membranes moist. Neck: Trachea midline, no thyromegaly or masses palpated, and no cervical lymphadenopathy. Supple, full range of motion without nuchal rigidity, or vertebral point tenderness. No Meningismus. Chest/axilla: Normal chest wall appearance and motion. Nontender with no deformity. No lesions are appreciated. Cardiovascular: Regular rate and rhythm with a normal S1 and S2. No gallops, murmurs, or rubs. Normal PMI, no JVD. No pulse deficits. Respiratory: Lungs have equal breath sounds bilaterally, clear to auscultation and percussion. No rales, rhonchi or wheezes noted. No increased work of breathing, no retractions or nasal flaring. Abdomen/GI: Soft, non-tender, with normal bowel sounds. No distension or tympany. No guarding or rebound. No evidence of tenderness throughout. Back: No spinal tenderness. No costovertebral tenderness. Full range of motion. Skin: Warm, dry with normal turgor. Normal color with no rashes, no lesions, and no evidence of cellulitis. Neuro: Awake and alert, GCS 15, oriented to person, place, time, and situation. Cranial nerves II-XII grossly intact. Motor strength 5/5 in all extremities. Sensory grossly intact. Cerebellar exam normal. Normal gait. Psych: Awake, alert, with orientation to person, place and time. Behavior, mood, and affect are within normal limits. 12:10 ECG was reviewed by the Attending Physician. 12:10 Musculoskeletal/extremity: ROM: full active range of motion, full passive range of motion, Pulses: noted to be 4+ in the bilateral radial, brachial, femoral, popliteal, posterior tibial and and dorsalis pedis arteries., decreased sensation, Compartment Syndrome exam of affected extremity: is normal. Weight bearing: can bear weight with assistance only, uses walker, DVT Exam: pain, swelling, tenderness, erythema, increased warmth, that is moderate, of the left leg, 15:03 ECG was reviewed by the Attending Physician. [facility] Vital Signs: 10:34 BP 135 / 89; Pulse 108; Resp 16; Temp 99.2(O); Pulse Ox 99% on R/A; Weight 88.9 kg; ll1 Height 5 ft. 5 in. ; Pain 6/10; 13:00 BP 125 / 84; Pulse 88; Resp 16; Pulse Ox 99% on R/A; db 13:30 BP 114 / 81; Pulse 91; Resp 18; Pulse Ox 100% on R/A; db 14:00 BP 113 / 78; Pulse 87; Resp 16; Pulse Ox 96% on R/A; db 10:34 Body Mass Index 32.62 (88.90 kg, 165.1 cm) ll1 10:34 Pain Scale: Adult ll1 [place] Coma Score: 12:10 Eye Response: spontaneous(4). Motor Response: obeys commands(6). Verbal Response: julianna oriented(5). Total: 15. MDM: 10:31 Medical Screening Exam initiated julianna 12:11 Differential diagnosis: contusion, abrasion, tendonitis, sprain, foreign body. Data [facility] reviewed: vital signs, nurses notes, lab test result(s), EKG, radiologic studies, doppler, plain films. I considered the following discharge prescriptions or medication management in the emergency department Medications were administered in the Emergency Department. See MAR. Independent interpretation of the following test(s) in the Emergency Department EKG: See my EKG interpretation above. Test considered but Not performed: Ultrasound no arterial doppler. Historians other than the Patient: pt well informed. Care significantly affected by the following chronic conditions: Diabetes, Hypertension, Obesity. 09/18 12:05 Order name: Basic Metabolic Panel; Complete Time: 13:22 [facility] 09/18 12:05 Order name: CBC with Diff; Complete Time: 13:22 [facility] 09/18 12:05 Order name: LFT's; Complete Time: 13:22 [facility] 09/18 12:05 Order name: Magnesium; Complete Time: 13:22 [facility] 09/18 12:05 Order name: NT PRO-BNP; Complete Time: 13:22 [facility] 09/18 12:05 Order name: PT-INR; Complete Time: 13:22 [facility] 09/18 12:05 Order name: Troponin HS; Complete Time: 13:22 [facility] 09/18 12:05 Order name: Wound Culture 09/18 12:05 Order name: Blood Culture Adult (2) 09/18 12:05 Order name: Lactate w/ 2H reflex if indic.; Complete Time: 13:22 [facility] 09/18 13:00 Order name: Basic Metabolic Panel EDMS 09/18 13:00 Order name: Basic Metabolic Panel EDMS 09/18 13:00 Order name: Basic Metabolic Panel EDMS 09/18 13:00 Order name: Basic Metabolic Panel EDMS 09/18 13:00 Order name: Urinalysis w/ reflexes EDMS 09/18 13:01 Order name: Basic Metabolic Panel EDMS 09/18 13:01 Order name: Basic Metabolic Panel EDMS 09/18 13:01 Order name: CBC with Automated Diff EDMS 09/18 13:01 Order name: CBC with Automated Diff EDMS 09/18 13:01 Order name: CBC with Automated Diff EDMS 09/18 13:01 Order name: CBC with Automated Diff EDMS 09/18 13:01 Order name: CBC with Automated Diff EDMS 09/18 13:01 Order name: CBC with Automated Diff EDMS 09/18 13:01 Order name: Hemoglobin A1c EDMS 09/18 13:01 Order name: Hemoglobin A1c EDMS 09/18 13:01 Order name: Lactate w/ 2H reflex if indic. EDMS 09/18 13:01 Order name: Lactate w/ 2H reflex if indic. EDMS 09/18 13:01 Order name: Lactate w/ 2H reflex if indic. EDMS 09/18 13:01 Order name: Magnesium EDMS 09/18 13:01 Order name: Magnesium EDMS 09/18 13:01 Order name: Magnesium EDMS 09/18 13:01 Order name: Magnesium EDMS 09/18 13:01 Order name: Magnesium EDMS 09/18 13:01 Order name: Magnesium EDMS 09/18 13:01 Order name: Protime (+INR) EDMS 09/18 13:01 Order name: Protime (+INR) [facility] 09/18 13:02 Order name: C-Reactive Protein [facility] 09/18 13:02 Order name: C-Reactive Protein [facility] 09/18 13:02 Order name: C-Reactive Protein [facility] 09/18 13:02 Order name: C-Reactive Protein [facility] 09/18 13:02 Order name: C-Reactive Protein [facility] 09/18 12:05 Order name: XRAY Chest (1 view) [facility] 09/18 12:05 Order name: Foot Left 3 View XRAY [facility] 09/18 12:05 Order name: US Extremity Venous Unilateral Ltd; Complete Time: 13:22 [facility] 09/18 12:05 Order name: EKG; Complete Time: 12:05 [facility] 09/18 12:56 Order name: CONS Physician Consult [facility] 09/18 12:05 Order name: Cardiac monitoring; Complete Time: 14:03 [facility] 09/18 12:05 Order name: EKG - Nurse/Tech; Complete Time: 14:03 [facility] 09/18 12:05 Order name: IV Saline Lock; Complete Time: 12:55 [facility] 09/18 12:05 Order name: Labs collected and sent; Complete Time: 12:55 [facility] 09/18 12:05 Order name: O2 Per Protocol; Complete Time: 12:55 [facility] 09/18 12:05 Order name: O2 Sat Monitoring; Complete Time: 12:55 [facility] 09/18 12:05 Order name: Wound dressing; Complete Time: 14:14 julianna EC:03 Rate is 85 beats/min. Rhythm is regular. QRS [place] is Normal. [place] interval is normal. QRS julianna interval is normal. QT interval is normal. No Q waves. T waves are Normal. No ST changes noted. Clinical impression: Normal ECG and No evidence of ischemia. Interpreted by me. Reviewed by me. Administered Medications: 12:35 Drug: NS 0.9% IV (30 ml/kg) 30 ml/kg IV at bolus once; Sepsis Protocol; to be given as db a bolus over 90 minutes Route: IV; Rate: bolus; Site: right antecubital; 16:15 Follow up: Response: No adverse reaction; IV Status: Completed infusion; IV Intake: db 2667ml 12:40 Drug: Acetaminophen PO 1000 mg PO once Route: PO; db 14:14 Follow up: Response: No adverse reaction db 12:40 Drug: morphine IVP or IV 4 mg IVP once over 4 mins Route: IVP; Infused Over: 4 mins; db Site: right antecubital; 14:15 Follow up: Response: No adverse reaction; Pain is decreased db 12:40 Drug: Ondansetron IVP 4 mg IVP once; over 2 minutes Route: IVP; Site: right antecubital;db 14:15 Follow up: Response: No adverse reaction db 12:43 Drug: Piperacillin-Tazobactam IVPB 3.375 grams IVPB once over 60 mins; (mix in NS 100 db mL) Route: IVPB; Infused Over: 60 mins; Site: right antecubital; 13:20 Follow up: Response: No adverse reaction; IV Status: Completed infusion; IV Intake: db 100ml 13:20 Drug: vancoMYCIN IVPB 1.5 grams IVPB at calculated rate once Route: IVPB; Rate: db calculated rate; Site: right antecubital; 16:20 Follow up: Response: No adverse reaction; IV Status: Completed infusion; IV Intake: db 500ml Disposition Summary: 09/18/24 12:15 Hospitalization Ordered Notes: Hospitalization Status: Inpatient Admission julianna Provider: Riley Fraga cha Condition: Fair julianna Problem: new julianna Symptoms: have worsened julianna Bed/Room Type: Standard julianna Location: Telemetry/MedSurg (Inpatient)(09/18/24 18:41) kb3 Room Assignment: 230(09/18/24 18:41) kb3 Diagnosis - Cellulitis and acute lymphangitis of other parts of limb julianna - Cellulitis of other parts of limb julianna - Type 2 diabetes mellitus with hyperglycemia julianna - Fever, unspecified julianna - Personal history of diabetic foot ulcer julianna - Elevated white blood cell count julianna - Chronic kidney disease, unspecified julianna Forms: - Medication Reconciliation Form julianna - SBAR form julianna - Leadership Thank You Letter julianna Signatures: Dispatcher [employer] Luisa Arndt Corey, MD MD cha Lewis, Lynsay, RN RN ll1 Maricarmen Clinton RN RN kb3 Carrol Sánchez RN RN db Corrections: (The following items were deleted from the chart) 12:06 12:05 BASIC METABOLIC PANEL+C.LAB.BRZ ordered. EDMS EDMS 12:06 12:05 CBC+H.LAB.BRZ ordered. EDMS EDMS 12: 12:05 HEPATIC FUNCTION+C.LAB.BRZ ordered. EDMS EDMS 12: 12:05 MAGNESIUM+C.LAB.BRZ ordered. EDMS EDMS 12: 12:05 PROBNP+C.LAB.BRZ ordered. EDMS EDMS 12: 12:05 PROTIME (+INR)+COAG.LAB.BRZ ordered. EDMS EDMS 12: 12:05 Troponin High Sensitivity+C.LAB.BRZ ordered. EDMS EDMS 12: 12:05 Wound Culture+BA.LAB.BRZ ordered. EDMS EDMS 12:06 12:05 BLOOD CULTURE*+BA.LAB.BRZ ordered. EDMS EDMS 12:06 12:05 LACTATE+C.LAB.BRZ ordered. EDMS EDMS 15:11 12:15 Telemetry/MedSurg (Inpatient) julianna bd 15:11 12:15 julianna bd 18:41 15:11 BR ER HOLD bd kb3 18:41 15:11 ERHOLD- bd kb3
--- NOTE | 2024-09-18 12:16 | ER ---
Nurse's Notes [facility] Name: Mac Colón Age: 54 yrs Sex: Male : 1970 Arrival Date: 09/18/2024 Time: 10:23 Bed 25 Private MD: Diagnosis: Cellulitis and acute lymphangitis of other parts of limb;Cellulitis of other parts of limb;Type 2 diabetes mellitus with hyperglycemia;Fever, unspecified;Personal history of diabetic foot ulcer;Elevated white blood cell count;Chronic kidney disease, unspecified Presentation: 09/18 10:34 Chief complaint: Patient states: Wound to L foot for 2 days. Redness and pain is going ll1 up LLE now, site is red, hot, painful. Coronavirus screen: Client denies travel out of the [place] in the last 14 days. At this time, the client does not indicate any symptoms associated with coronavirus-19. Ebola Screen: Patient denies travel to an Ebola-affected area in the 21 days before illness onset. Initial Sepsis Screen: Does the patient meet any 2 criteria? No. Patient's initial sepsis screen is negative. Does the patient have a suspected source of infection? No. Patient's initial sepsis screen is negative. Risk Assessment: Do you want to hurt yourself or someone else? Patient reports no desire to harm self or others. Onset of symptoms was September 17, 2024. 10:34 Method Of Arrival: Ambulatory ll1 10:34 Acuity: QUAN 3 ll1 Historical: - Allergies: 10:34 No Known Allergies; ll1 - PMHx: 10:34 diabetes mellitus; Hyperlipidemia; Hypertension; ll1 - PSHx: 10:34 toe amputation-L (Hypertension); ll1 - Immunization history:: Adult Immunizations up to date. - Infectious Disease History:: Denies. - Social history:: Smoking status: Patient/guardian denies using tobacco, the patient reports quitting approximately 2 years ago. Screenin:00 [facility] ED Fall Risk Assessment (Adult) History of falling in the last 3 months, db including since admission No falls in past 3 months (0 pts) Confusion or Disorientation No (0 pts) Intoxicated or Sedated No (0 pts) Impaired Gait No (0 pts) Mobility Assist Device Used No (0 pt) Altered Elimination No (0 pt) Score/Fall Risk Level 0 - 2 = Low Risk Oriented to surroundings, Maintained a safe environment. Abuse screen: Denies threats or abuse. Denies injuries from another. Nutritional screening: No deficits noted. Tuberculosis screening: No symptoms or risk factors identified. Assessment: 13:00 Reassessment: Patient appears in no apparent distress at this time. Patient and/or db family updated on plan of care and expected duration. Pain level reassessed. Patient is alert, oriented x 3, equal unlabored respirations, skin warm/dry/pink. General: Appears in no apparent distress. comfortable, Behavior is calm, cooperative. Neuro: Level of Consciousness is awake, alert, obeys commands, Oriented to person, place, time, situation. Respiratory: Airway is patent Respiratory effort is even, unlabored, Respiratory pattern is regular, symmetrical. Derm: Skin is red, Wound noted Left second toenail. 14:00 Reassessment: Patient appears in no apparent distress at this time. Patient and/or db family updated on plan of care and expected duration. Pain level reassessed. Patient is alert, oriented x 3, equal unlabored respirations, skin warm/dry/pink. 16:00 Reassessment: Patient appears in no apparent distress at this time. Patient and/or db family updated on plan of care and expected duration. Pain level reassessed. Patient is alert, oriented x 3, equal unlabored respirations, skin warm/dry/pink. SEE [facility] FOR CONTINUED DOCUMENTATION. Vital Signs: 10:34 BP 135 / 89; Pulse 108; Resp 16; Temp 99.2(O); Pulse Ox 99% on R/A; Weight 88.9 kg; ll1 Height 5 ft. 5 in. ; Pain 6/10; 13:00 BP 125 / 84; Pulse 88; Resp 16; Pulse Ox 99% on R/A; db 13:30 BP 114 / 81; Pulse 91; Resp 18; Pulse Ox 100% on R/A; db 14:00 BP 113 / 78; Pulse 87; Resp 16; Pulse Ox 96% on R/A; db 10:34 Body Mass Index 32.62 (88.90 kg, 165.1 cm) ll1 10:34 Pain Scale: Adult ll1 Israel Coma Score: 12:10 Eye Response: spontaneous(4). Motor Response: obeys commands(6). Verbal Response: julianna oriented(5). Total: 15. ED Course: 10:29 Patient arrived in ED. im 10:31 Tye Pires MD is Attending Physician. julianna 10:36 Triage completed. ll1 10:43 Arm band placed on Patient placed in an exam room, on a stretcher. ll1 12:03 Carrol Sánchez, MAGDALENA is Primary Nurse. db 12:10 First set of blood cultures drawn. db 12:14 Riley Fraga MD is Hospitalizing Provider. julianna 12:23 Initial lab(s) drawn, by me, sent to lab. Second set of blood cultures drawn Wound db culture swab sent to lab. Inserted saline lock: 20 gauge in right antecubital area, using aseptic technique. Blood collected. Flushed with 10 mL NS. 12:29 Patient has correct armband on for positive identification. Bed in low position. Call db light in reach. Side rails up X 1. Pulse ox on. NIBP on. Warm blanket given. Pillow given. 12:42 US Extremity Venous Unilateral Ltd In Process Unspecified. EDMS 13:10 XRAY Chest (1 view) In Process Unspecified. EDMS 13:10 Foot Left 3 View XRAY In Process Unspecified. EDMS 16:00 Provided Education on: ADMISSION. db 16:00 No provider procedures requiring assistance completed. Patient admitted, IV remains in db place. Administered Medications: 12:35 Drug: NS 0.9% IV (30 ml/kg) 30 ml/kg IV at bolus once; Sepsis Protocol; to be given as db a bolus over 90 minutes Route: IV; Rate: bolus; Site: right antecubital; 16:15 Follow up: Response: No adverse reaction; IV Status: Completed infusion; IV Intake: db 2667ml 12:40 Drug: Acetaminophen PO 1000 mg PO once Route: PO; db 14:14 Follow up: Response: No adverse reaction db 12:40 Drug: morphine IVP or IV 4 mg IVP once over 4 mins Route: IVP; Infused Over: 4 mins; db Site: right antecubital; 14:15 Follow up: Response: No adverse reaction; Pain is decreased db 12:40 Drug: Ondansetron IVP 4 mg IVP once; over 2 minutes Route: IVP; Site: right antecubital;db 14:15 Follow up: Response: No adverse reaction db 12:43 Drug: Piperacillin-Tazobactam IVPB 3.375 grams IVPB once over 60 mins; (mix in NS 100 db mL) Route: IVPB; Infused Over: 60 mins; Site: right antecubital; 13:20 Follow up: Response: No adverse reaction; IV Status: Completed infusion; IV Intake: db 100ml 13:20 Drug: vancoMYCIN IVPB 1.5 grams IVPB at calculated rate once Route: IVPB; Rate: db calculated rate; Site: right antecubital; 16:20 Follow up: Response: No adverse reaction; IV Status: Completed infusion; IV Intake: db 500ml Medication: 13:00 VIS not applicable for this client. db Intake: 13:20 IV: 100ml; Total: 100ml. db 16:15 IV: 2667ml; Total: 2767ml. db 16:20 IV: 500ml; Total: 3267ml. db Outcome: 12:15 Decision to Hospitalize by Provider. [facility] 16:00 Admitted to ER Hold. Please [facility] for further documentation. db 16:00 Condition: stable 16:00 Instructed on the need for admit, 21:02 Patient left the ED. vk Signatures: Dispatcher [employer] EDTye Villa MD MD cha Lewis, Lynsay, RN RN ll1 Carrol Sánchez RN RN Juli Renteria Vivian vk Corrections: (The following items were deleted from the chart) 17:22 14:20 Reassessment: CALLED [facility] ER TO GIVE REPORT. db db
[2024-09-18 12:36] LABS: Absolute Lymphocytes (CBC) 1.1 K/uL (0.7-4.9); Absolute Monocytes 1.7 K/uL (0.1-1.3); Absolute Neutrophil 10.4 K/uL (1.8-8.0); Basophils % 0.2 % (0-1.3); Eosinophils % 0.4 % (0-4.4); Hematocrit 45.8 % (39.6-49.0); Hemoglobin 15.5 g/dL (13.6-17.9); MCH 29.8 pg (27.0-35.0); MCHC 33.7 g/dL (32.0-36.0); MCV 88.4 fL (80-100); MPV 7.5 fL (7.6-11.3); Monocytes % 12.9 % (3.3-12.3); Neutrophils % 78.5 % (41.7-73.7); Nucleated Red Blood Cells % 0.1 % (0-0); Platelets 184 thou/uL (152-406); RBC Red Blood Cell Count 5.19 M/uL (4.33-5.43); Red Cell Distribution Width 15.3 % (12.1-15.2)
[2024-09-18] MEDS ORDERED: ONDANSETRON 4 MG/2 ML VIAL ONE (12:38)
[2024-09-18] MEDS ORDERED: NA CHLORIDE 0.9% 2,000 ML ONE (12:39)
[2024-09-18] MEDS ORDERED: NA CHLORIDE 0.9% 100 ML ONE ×2 (12:39→18:05)
[2024-09-18] MEDS ORDERED: ACETAMINOPHEN 500 MG TAB ONE (12:39)
[2024-09-18] MEDS ORDERED: MORPHINE 4 MG/ML SYR ONE (12:39)
[2024-09-18] MEDS ORDERED: NA CHLORIDE 0.9% 500 ML ONE (12:39)
[2024-09-18] MEDS ORDERED: PIPERACIL/TAZO 3.375 GM VIAL IV ONE ×2 (12:40→18:05)
[2024-09-18 12:44] LABS: PT Prothrombin Time 12.2 SECONDS (10-13.0); Protime INR 1.07
--- NOTE | 2024-09-18 12:51 | P.HP ---
Certification for Inpatient Patient admitted to: Inpatient Practitioner: I am a practitioner with admitting privileges, knowledge of patient current condition, hospital course, and medical plan of care. Services: Services provided to patient in accordance with Admission requirements found in Title 42 Section 412.3 of the Code of Federal Regulations Patient History Date of Service: 09/18/24 Reason for admission: Left lower extremity foot wound History of Present Illness: no evidence of DVT 54-year-old male with a past medical history of hypertension, hyperlipidemia, diabetes, presents to the emergency room with left lower extremity foot wound. He reports symptoms started started 2 days, is getting progressively worse. He reports recent toe amputation January 2024,. He reports increased left lower extremity pain, swelling, fever worse today.. No reported nausea vomiting diarrhea, chest pain, shortness of breath venous Doppler ultrasound no evidence of DVT. Mild leukocytosis WBCs 13.30, positive for left shift, acute kidney injury, BUN 24 creatinine 2.34, GFR 32, blood glucose 135, plan to admit for left lower extremity cellulitis, with surgery to consult Allergies No Known Allergies Allergy (Verified 02/16/23 14:24) Home Medications: Losartan Potassium 1 tab PO DAILY 08/22/22 Rosuvastatin [Crestor*] 1 tab PO DAILY 08/22/22 Pantoprazole [Protonix Tab*] 40 mg PO DAILY 01/16/24 Semaglutide [Ozempic] 2.5 mg SQ EVERY 7TH DAY 01/16/24 Oxycodone HCl/Acetaminophen [Percocet 5/325 Tab] 1 tab PO Q4H PRN 3 Days #18 tab 01/19/24 - Past Medical/Surgical History Diabetic: Yes -: DMII -: HTN -: HLD -: knee sx 1997 x2 -: Left axilla cyst removal -: Left plantar diabetic wound -: Hand surgery Psychosocial/ Personal History: Lives at home with his , has been having wound care 3 times weekly to the left foot with home health - Family History Father -: Diabetes - Social History Alcohol use: No CD- Drugs: No Caffeine use: Yes Review of Systems 10-point ROS is otherwise unremarkable Physical Examination - Physical Exam General: Alert, In no apparent distress, Oriented x3 HEENT: Atraumatic, Normocephalic Neck: Supple, 2+ carotid pulse no bruit Respiratory: Clear to auscultation bilaterally, Normal air movement Cardiovascular: No edema, Normal pulses, Regular rate/rhythm, Normal S1 S2 Capillary refill: <2 Seconds Gastrointestinal: Normal bowel sounds, Soft and benign Musculoskeletal: Other (Left lower extremity swelling/ +pain with range of motion) Integumentary: Other (Left lower extremity cellulitis, Middle toe Ulcer ) Neurological: Normal speech, Normal strength at 5/5 x4 extr, Sensation intact, Cranial nerves 3-12 intact - Studies Laboratory Data (last 24 hrs) 09/18/24 09/18/24 12:23 12:23 WBC 13.30 H Hgb 15.5 Hct 45.8 Plt Count 184 PT 12.2 INR 1.07 Assessment and Plan - Problems (Diagnosis) (1) Acute lymphangitis of left lower extremity Current Visit: Yes Status: Acute (2) Cellulitis of leg, left Current Visit: Yes Status: Acute (3) Diabetes mellitus with hyperglycemia Current Visit: Yes Status: Acute Qualifiers: Diabetes mellitus type: type 2 (4) Fever Current Visit: Yes Status: Acute Qualifiers: Fever type: unspecified Qualified Code(s): R50.9 - Fever, unspecified (5) Acute kidney injury Current Visit: Yes Status: Acute (6) Hypertension Current Visit: Yes Status: Chronic (7) Hyperlipidemia Current Visit: Yes Status: Chronic Qualifiers: Hyperlipidemia type: unspecified Qualified Code(s): E78.5 - Hyperlipidemia, unspecified - Plan Admit to [facility] Left lower extremity cellulitis Left lower extremity lymphangitis Surgery to consult MRI of the left lower extremity to rule out osteomyelitis Infectious disease consult IV antibioticsvancomycin, Zosyn As needed analgesics, antiemetic Lower extremity Doppler negative for DVT Trend CBCs, lactic, CRP Trend cultures Diabetes with hyperglycemia Sliding scale Educated on diabetic diet A1c acute kidney injury unknown baseline Hyper tension Hyperlipidemia Resume appropriate home meds when reconciled Lipid panel Full code DVT per surgery Diet diabetic Disposition pending hospital course Discharge Plan: Home - Advance Directives Does patient have a Living Will: No Does patient have a Durable POA for Healthcare: No - Code Status/Comfort Care Code Status: Full Code Critical Care: No Time Spent Managing Pts Care (In Minutes): 55
[2024-09-18] MEDS ORDERED: ONDANSETRON 4 MG/2 ML VIAL IV PRN (12:54)
--- NOTE | 2024-09-18 12:56 | RAD REPORT ---
EXAMINATION: US LEFT LOWER EXTREMITY VENOUS DOPPLER CLINICAL INDICATION: Pain;Swelling TECHNIQUE: Complete bilateral duplex sonography of the LEFT lower extremity veins was performed. The examination included compression for vein patency, color Doppler imaging and flow augmentation in response to distal compression of the distal external iliac, common femoral, femoral, popliteal, tibi al, and great and small saphenous veins. COMPARISON: No prior exam. FINDINGS: Duplex sonography testing of the veins of the LEFT lower extremity was performed. Color flow imaging shows all veins to be compressible with [id number] color filling. Pulsatile and phasic flow is present within all lower extremity deep and superficial veins examined. Prominent left groin lymph no de. IMPRESSION: There is no deep vein or superficial vein thrombosis.
[2024-09-18 12:58] LABS: Albumin 3.4 g/dL (3.4-5.0); Albumin/Globulin Ratio 0.7 (1.1-1.8); Anion Gap 11.9 mEq/L (5.0-15.0); Bilirubin Direct 0.3 mg/dL (0-0.2); Bilirubin Indirect, Calculated 0.5 mg/dL (0.2-0.8); Bilirubin Total 0.8 mg/dL (0.2-1.0); Magnesium 2.4 mg/dL (1.6-2.4); Potassium 3.9 mEq/L (3.5-5.1); Protein, Total 8.4 g/dL (6.4-8.2); Troponin High Sensitivity 11.9 pg/mL (<58.9)
[2024-09-18] MEDS ORDERED: MORPHINE 4 MG/ML SYR IV PRN (12:58)
[2024-09-18] MEDS: NA CHLORIDE 0.9% 1,000 ML IV SCH (13:00)
[2024-09-18] MEDS: VANCOMYCIN 1.5 GM in NA CHLORIDE 0.9% 500 ML IVPB ONE (13:25)
--- NOTE | 2024-09-18 14:12 | RAD REPORT ---
EXAM: Chest Single View HISTORY: 54 years Male COUGH COMPARISON: 05/10/24 FINDINGS: LUNGS/PLEURA: The lungs are clear. No pleural effusions or pneumothorax. No pulmonary edema. CARDIAC/MEDIASTINUM: The cardiac silhouette is within normal limits. UPPER ABDOMEN: No significant abnormality. BONES: No acute abnormality. LINES/TUBES/OTHER: N/A IMPRESSION: No evidence of acute cardiopulmonary disease. 05/10/2024
--- NOTE | 2024-09-18 14:17 | RAD REPORT ---
EXAMINATION: Foot Left 3 View VIEWS: Three views CLINICAL INDICATION: Male, 54 years old. PAIN COMPARISON: MRI 07/15/2024, radiograph 01/16/2024 IMPRESSION: No acute fracture. Increased lucency at the tip of the second distal phalanx could reflect osteomyeli tis however correlate with area of suspected infection. Postoperative changes are present at the third and fourth toes. The third toe has been partially ampu tated at the level of the MTP joint. There are operative changes at the fourth middle and proximal phalanx.
[2024-09-18] MEDS: INSULIN REGULAR (HUMAN) 100 UNIT/ML SQ SCH (16:30)
[2024-09-18] MEDS: HEPARIN 5000 UNIT/ML 1 ML VIAL SQ SCH (17:00)
[2024-09-18] MEDS: PIPER TAZO 3.375 GM in NA CHLORIDE 0.9% 100 ML IV SCH (17:00)
[2024-09-18 18:05] VITALS: BMI 32.5
[2024-09-18] MEDS ORDERED: HEPARIN 5000 UNIT/ML 1 ML VIAL ONE (18:05)
[2024-09-18] MEDS ORDERED: NA CHLORIDE 0.9% 1,000 ML ONE (18:13)
[2024-09-18] MEDS: FLU (Fluarix Triv) TS24-25(6MOS UP)/PF 45 MCG/0.5 ML Syringe IM ONE (18:15)
[2024-09-18] MEDS: HYDROCODONE/APAP 5/325 MG TAB PO PRN (21:55)
[2024-09-18 23:08] LABS: Specific Gravity 1.005 (1.005-1.030); Sqamous Epithelial None Seen /HPF (None Seen); Urine Bacteria None Seen /HPF (<20); Urine Bilirubin NEGATIVE (Negative); Urine Blood Trace (Negative); Urine Clarity Clear (Clear); Urine Color Colorless (Yellow); Urine Culture Reflex Order NOT NEEDED; Urine Glucose 4+ (Over) (Negative); Urine Ketones NEGATIVE (Negative); Urine Microscopic Reflex YN ORDER UMIC; Urine Nitrite NEGATIVE (Negative); Urine Protein TRACE (Negative); Urine RBC <5 /HPF (None Seen); Urine Urobilinogen Normal (Normal); Urine WBC <5 /HPF (<5); Urine pH 6.5 (5.0-7.0)
[2024-09-19 07:24] LABS: Absolute Eosinophils 0.1 K/uL (0-0.5); Absolute Lymphocytes (CBC) 1.3 K/uL (0.7-4.9); Absolute Monocytes 1.6 K/uL (0.1-1.3); Absolute Neutrophil 7.8 K/uL (1.8-8.0); Basophils % 0.2 % (0-1.3); Eosinophils % 1.4 % (0-4.4); Hematocrit 41.3 % (39.6-49.0); Hemoglobin 14.1 g/dL (13.6-17.9); Lymphocytes % 12.2 % (15.3-44.8); MCH 30.4 pg (27.0-35.0); MCHC 34.1 g/dL (32.0-36.0); MCV 89.1 fL (80-100); MPV 7.8 fL (7.6-11.3); Neutrophils % 71.2 % (41.7-73.7); Nucleated Red Blood Cells % 0.1 % (0-0); Platelets 162 thou/uL (152-406); RBC Red Blood Cell Count 4.64 M/uL (4.33-5.43); Red Cell Distribution Width 15.3 % (12.1-15.2)
[2024-09-19 07:29] LABS: PT Prothrombin Time 11.7 SECONDS (10-13.0); Protime INR 1.03
[2024-09-19 07:50] LABS: Anion Gap 8.1 mEq/L (5.0-15.0); Magnesium 2.4 mg/dL (1.6-2.4); Potassium 4.1 mEq/L (3.5-5.1)
--- NOTE | 2024-09-19 11:55 | EKG ---
Test Date: 2024-09-18 Test Time: 14:01:14 Quality Audit Representative: HEIDI MEASUREMENT RESULTS: Intervals: Rate: 85 TN: 154 QRSD: 90 QT: 370 QTc: 440 Parrott: P: 66 TN: 154 QRS: 65 T: 52 INTERPRETIVE STATEMENTS: Normal sinus rhythm Normal ECG Compared to ECG 01/16/2024 14:36:28 Sinus tachycardia no longer present Electronically Signed On 09-19-24 11:52:53 CDT by Ankush Blanco
[2024-09-19] MEDS ORDERED: ONDANSETRON 4 MG/2 ML VIAL ONE (12:50)
[2024-09-19] MEDS ORDERED: FENTANYL CITR 100 MCG/2 ML ONE (12:50)
[2024-09-19] MEDS ORDERED: KETOROLAC 30 MG/ML INJ ONE (12:50)
[2024-09-19] MEDS ORDERED: LIDOCAINE 2% MPF 5 ML VIAL ONE (12:50)
[2024-09-19] MEDS ORDERED: MIDAZOLAM HCL 2 MG/2 ML INJ ONE (12:50)
[2024-09-19] MEDS ORDERED: dexAMETHasone 10 MG/ML VIAL ONE (12:50)
[2024-09-19] MEDS ORDERED: propofoL 200 MG/20 ML VIAL IV ONE (12:50)
[2024-09-19] MEDS: BUPIVACAINE 0.5% PF 10 ML VIAL ONE (13:19)
--- NOTE | 2024-09-19 13:33 | P.BOP ---
Preoperative diagnosis: Left foot abscess, left 2nd toe necrotic ulcer with left lower leg cellulit Postoperative diagnosis: same Primary procedure: 1. I &D left foot abscess Secondary procedure: 2. Excisional debridement left 2nd toe down to bone Estimated blood loss: <1cc Specimen: bone bx /culture, foot culture and necrotic tissue, foot culture Anesthesia: General Complications: None Drain(s): Other (iodoform 05/25") Transferred to: Recovery Room Condition: Good
--- NOTE | 2024-09-19 15:34 | CON ---
Date of Consultation: 09/18/2024 As notified, this patient was seen in ER. History Of Present Illness: This is the case of a 54-year-old patient, comes to us with redness, angela thema, fluctuance, abscess of the left foot region. He has been seen before by Dr. Rico. He is out of town at this moment. He has been to see if I can help him. The patient has agreed with that. T he patient has an amputation of this second toe several months ago. He is doing okay after that, alt butch this now comes new. That was called for incision and drainage of that abscess. He said he is trying to do the best he can with his diet. He has diabetes and proper shoes, although sometimes he admit this is difficult to keep the diet. He was advised and counseled the importance of diabetes co ntrol and proper shoe wearing. He understand also the importance of following up with his medical do ctors and also the OR appointment. Allergies: NONE. Medications: Protonix, Ozempic, Percocet, Crestor, losartan. Past Medical History: Include hypertension, diabetes. Past Surgical History: Include left second toe amputation, axillary cyst, knee surgery. Family History: Include diabetes. Social History: He does not smoke. He does not drink alcohol. Review of Systems: Ten points otherwise unremarkable. Physical Examination: Vital Signs: Reviewed. Patient is awake, alert. HEENT: Pupils anicteric. Neck: Supple. Chest: Clear. Heart: S1, S2. Abdomen: Soft and depressible. Extremities: Diminished peripheral pulses, although he claims that is chronic. No cyanosis over the left foot. Over the area of the distal foot, patient has an abscess that involved part of his secon d toe. Apparently, he has a third toe removed, not the second one. The base of that shows fluctuanc e and also the foot area consistent with an abscess. He also had an ulcer at the distal tip of the t oe. He does not want to remove the toe at this moment. Laboratory Data: Blood work shows WBC count of 13, with hemoglobin of 15.5, INR of 1.07, and creatin ine is 2.06. MRI still pending. Assessment And Plan: A 54-year-old patient comes to us with cellulitis and abscess of the left foot involved the toe, still present there. He does not want to have an amputation of the toe at this mom ent. He wants to fight this, so we are going to on incision and drainage and debridement and then th e wound care and antibiotics in the next few days and let that delineate. If by any chance, he see t hat is not improving, then he will us to do the amputation, but not in the meantime. So, patient was booking OR. Once again, the patient advised the importance of diabetes control and following up in the [facility], when he gets discharged. CATRACHITA/MODL Voice ID: [id number] Report ID: [id number]
--- NOTE | 2024-09-19 15:39 | OP ---
Date of Procedure: 09/19/2024 Surgeon: Mino Henson MD Preoperative Diagnosis: Left foot abscess, left second toe necrotic ulcer with left lower leg cellul itis. Postoperative Diagnosis: Left foot abscess, left second toe necrotic ulcer with left lower leg cellu litis. Procedure Performed: 1. I and D of left foot abscess. 2. Excisional debridement down to bone of the left second toe. Estimated Blood Loss: Less than 1 cc. Specimens: Bone biopsy culture, foot culture, and necrotic tissue. Anesthesia: General plus local. Packing: Iodoform, quarter of an inch. Indication: This is a case of a 54-year-old patient, known to have diabetes, peripheral vascular dis ease, previous toes amputation, now come with the second toe with a distal wound present and necrotic tissue with an abscess in the distal part of the foot and cellulitis of the leg. I was called to do a debridement and drainage of this with benefits, alternatives, and risks explained to the patient w hich include, but not limited to infection, bleeding, damage to adjacent structures, anesthesia, comp lication, recurrence, UT, and even . He also understands this may not relieve symptoms, he migh t need more than one surgical intervention. He also understands the importance of wound care, compli ance with doctor medications, doctor visits, diabetes control, offloading, proper diabetic foot. He has signed a consent. The patient understands he might need long-term antibiotics depends on how billy p is the disease that we means bone. Description Of Procedure: The patient was brought to the operating room, placed in supine position. Anesthesia was without complication. The left foot was prepped and draped in a sterile fashion. A time-out was called. Local anesthesia was applied followed by an incision and drainage of the dorsal foot abscess at the area of the second metatarsal head. Then also, we proceeded to do a debridement of the distal toe necrotic ulcer now. Unfortunately, that shows a devitalized bone fragments that w e removed and sent for a bone biopsy to rule out osteomyelitis. The area was profusely irrigated. H emostasis obtained. After the debridement was done, we proceeded to cover the area with iodoform pac faisal and covered with sterile dressings. Patient tolerated the procedure well. Patient was sent to recovery in stable condition. CATRACHITA/BLAKE Voice ID: [id number] Report ID: [id number]
--- NOTE | 2024-09-19 15:41 | P.PN ---
Subjective Date of Service: 09/19/24 Chief Complaint: Left lower extremity foot wound Subjective: No chest pain or shortness of breath. No nausea or vomiting. No abdominal pain. No obvious bleeding. Looks comfortable in the bed. left leg pain improving. Objective: General appearance: Alert and comfortable CVS: Normal S1 and S2 Lungs: Clear to auscultation bilaterally Abdomen: Soft, bowel sounds present, no tenderness Extremities: No right lower extremity edema. Left leg edema and erythema better today, tip of the left second toe is amputated, has open wound with small amount of pus coming Physical Examination - Vital Signs Temperature: 97.9 F Blood Pressure: 111/75 Pulse: 78 Respirations: 20 Pulse Ox (%): 93 - Studies Microbiology Data (last 24 hrs): 09/18/24 12:14 Wound - Left Toe Gram Stain - Final Assessment And Plan - Plan Left lower extremity cellulitis Left lower extremity lymphangitis Surgery to consult MRI of the left lower extremity was canceled today as pt wnet to OR, please order for tomorrow Infectious disease consulted IV antibioticsvancomycin, Zosyn As needed analgesics, antiemetic Lower extremity Doppler negative for DVT -Plan to go to the operating room today. Diabetes with hyperglycemia Monitor sugars closely. acute kidney injury on ckd 3a: improving Hyper tension Hyperlipidemia Resume appropriate home meds 54-year-old patient with left leg cellulitis, left toe infection, white count elevated, started IV antibiotics, requested surgery and ID consult. Ultrasound negative for DVT, chest x-ray negative, foot x-ray positive for osteomyelitis. Plan for surgery today.
--- NOTE | 2024-09-19 23:40 | CON ---
History Of Present Illness: This is a 54-year-old male with significant past medical history of diab etes mellitus, hypertension, hyperlipidemia, coming in with left foot wound and cellulitis. The frank ent has a significant history of amputation of third toe in 2023, coming in with left second toe infe ction and ulceration, had surgical debridement done earlier today. The patient noted that he has dev eloped left lower extremity pain, swelling, and fever prior to admission, was brought into the hospit al. On initial lab evaluation, his white blood cell count was 13.3, and his initial cultures are sti ll pending, but blood cultures are showing no growth in 24 hours. Past Medical History: As per HPI. Social History: Ex tobacco user. Occasional alcohol use. Family History: Noncontributory. Medications: Vancomycin and Zosyn. See MARs for other medications. Allergies: NO KNOWN DRUG ALLERGIES. Review of Systems: Ten-point review was performed. Physical Examination: General: This is a 54-year-old male, lying in bed, not in any acute cardiopulmonary distress. Vital Signs: Temperature 97.9, pulse 82, respirations 14, blood pressure 117/73. HEENT: Unremarkable. Neck: Supple. Lungs: Basal crackles. Heart S1, S2. Regular. Abdomen: Soft, nontender. Bowel sounds present. Extremities: Left foot is in surgical dressing. Otherwise, no edema. Laboratory Data: Shows WBC 11,000, down from 13.3; hemoglobin 14.1; platelets are 162. Chemistry sh ows BUN of 19, creatinine 2.0, albumin level of 3.4. X-ray of the foot shows no acute fracture, incr eased lucency at the tip of the second distal phalanx indicating osteomyelitis. Assessment And Plan: A 54-year-old male with significant history of diabetes mellitus, diabetic neur opathy, and peripheral vascular disease, coming in with left second toe osteomyelitis and cellulitis of the foot and diabetic foot ulcer, status post debridement by the surgical team. The patient is cu rrently on vancomycin and Zosyn. Continue antibiotic for 6 weeks total. Pending culture results, we will fine tune his antibiotic and leukocytosis. Mild renal failure. Consider switching Zosyn to meropenem, as a combination of vancomycin and Zosyn might increase the chances of worsening of kidney function. Continue antibiotic and supportive care. We will follow the patient as needed. Thank you, Dr. Fraga, for consult. DK/BLAKE Voice ID: [id number] Report ID: [id number]
[2024-09-20] MEDS: NA CHLORIDE 0.9% 1,000 ML ONE (01:20)
[2024-09-20] MEDS: VANCOMYCIN 1.5 GM in NA CHLORIDE 0.9% 500 ML IVPB SCH (01:27)
[2024-09-20 07:30] LABS: Absolute Lymphocytes (CBC) 0.9 K/uL (0.7-4.9); Absolute Monocytes 0.7 K/uL (0.1-1.3); Absolute Neutrophil 10.3 K/uL (1.8-8.0); Basophils % 0.1 % (0-1.3); Hematocrit 41.4 % (39.6-49.0); Hemoglobin 14.2 g/dL (13.6-17.9); Lymphocytes % 7.5 % (15.3-44.8); MCH 29.8 pg (27.0-35.0); MCHC 34.2 g/dL (32.0-36.0); MPV 7.7 fL (7.6-11.3); Monocytes % 6.3 % (3.3-12.3); Neutrophils % 86.1 % (41.7-73.7); Nucleated Red Blood Cells % 0.1 % (0-0); Platelets 211 thou/uL (152-406); RBC Red Blood Cell Count 4.76 M/uL (4.33-5.43); Red Cell Distribution Width 15.3 % (12.1-15.2)
[2024-09-20 07:44] LABS: Anion Gap 14.3 mEq/L (5.0-15.0); Magnesium 2.4 mg/dL (1.6-2.4); Potassium 4.3 mEq/L (3.5-5.1)
[2024-09-20 09:20] LABS: Blood Morphology Comment NOT SEEN (NOT SEEN); Platelet Estimate ADEQ; White Blood Cell Scan OK (OK)
--- NOTE | 2024-09-20 17:10 | RAD REPORT ---
EXAM: Foot Left Wo Cont HISTORY: Foot pain. Foot swelling. TECHNIQUE: Axial, sagittal and coronal magnetic resonance imaging of the left foot obtained FINDINGS: Abnormal signal involves most of the second distal phalanx. No additional significant abnormal signal within the bones noted. No soft tissue abscess seen. No fracture IMPRESSION: Abnormal signal second distal phalanx compatible with osteomyelitis.
--- NOTE | 2024-09-20 18:23 | P.PN ---
Subjective Date of Service: 09/20/24 Chief Complaint: Left lower extremity foot wound wants to go home afebrile Review of Systems 10-point ROS is otherwise unremarkable Physical Examination - Vital Signs Temperature: 97.8 F Blood Pressure: 123/81 Pulse: 65 Respirations: 17 Pulse Ox (%): 100 - Physical Exam General: Alert Neck: Supple Respiratory: Normal air movement, Diminished Gastrointestinal: Soft and benign, Non-distended Musculoskeletal: Other (left foot covered in dressing) - Studies Microbiology Data (last 24 hrs): 09/18/24 12:14 Wound - Left Toe Gram Stain - Final 09/18/24 12:14 Wound - Left Toe Culture & Sensitivity - Final Meth Resistant Staph Aureus Assessment And Plan - Current Problems (Diagnosis) (1) Cellulitis of leg, left Current Visit: Yes Status: Acute (2) Diabetes mellitus with hyperglycemia Current Visit: Yes Status: Acute Qualifiers: Diabetes mellitus type: type 2 - Plan Left lower extremity cellulitis Left lower extremity lymphangitis Surgery to consult MRI of the left lower extremity to rule out osteomyelitis Infectious disease consulted IV antibioticsvancomycin, Zosyn--> change per ID As needed analgesics, antiemetic Lower extremity Doppler negative for DVT Trend CBCs, lactic, CRP Trend cultures Diabetes with hyperglycemia Sliding scale Educated on diabetic diet acute kidney injury unknown baseline Hyper tension Hyperlipidemia Resume appropriate home meds when reconciled Lipid panel dispo: likely need outpatient abx, followup cx Full code DVT per surgery Diet diabetic
--- NOTE | 2024-09-20 20:20 | PN ---
Date of Progress Note: 09/20/2024 Diagnosis: Status post incision and drainage of foot abscess and debridement of the toe with evidenc e of osteomyelitis and destructive bone disease. Subjective: The patient is doing better. He is receiving wound care. No new complaints. Surgical site is intact. Plan: Follow up cultures. Follow up bone biopsies. MRI to confirm osteomyelitis, although clinical ly I can see the piece of bone falling off the distal phalanx. He does not want do amputation. He w ants to treat this, so we will proceed accordingly. Whenever he gets discharged, we will send him to [facility]. He is a patient of Dr. Rico and he is happy to keep like that. CATRACHITA/BLAKE Voice ID: [id number] Report ID: [id number]
[2024-09-20] MEDS: Meropenem 1,000 MG in NA CHLORIDE 0.9% 100 ML IV SCH (20:53)
[2024-09-20] MEDS: ALPRAZOLAM 0.25 MG TABLET PO PRN (20:54)
--- NOTE | 2024-09-20 21:21 | P.PN ---
Date of Service: 09/20/24 Subjective ROS reviewed and negative unless stated in HPI.denied problem with abx. no other concern. Physical Examination Temp Pulse Resp BP Pulse Ox 97.8 F 65 17 123/81 100 09/20/24 18:22 09/20/24 18:22 09/20/24 18:22 09/20/24 18:22 09/20/24 18:22 - Physical Exam General: Alert and oriented x 3 Neck: Supple, No JVD Cardio: RRR Respiratory: Normal air movement, Diminished Gastrointestinal: Soft and benign, Non-distended Musculoskeletal: Other (left foot covered in dressing) - Studies Microbiology Data (last 24 hrs): 09/18/24 12:14 Wound - Left Toe Gram Stain - Final 09/18/24 12:14 Wound - Left Toe Culture & Sensitivity - Final Meth Resistant Staph Aureus Laboratory Results WBC 12, Hgb 14.2, Platelet 211, BUN 26, Cr 2.11 Assessment And Plan Left 2nd toe OM Left foot Cellulitis and diabetic foot ulcer s/p debridement DM with hyperglycemia MRI left foot shows Abnormal signal second distal phalanx compatible with osteomyelitis. Consider switching Zosyn to meropenem, as a combination of vancomycin and Zosyn might increase the chances of worsening of kidney function. Continue Vancomycin and Meropenem antibiotic for 6 weeks. tentative stop date November 01. Continue wound and supportive care. Monitor WBC and fever trend. We will follow the patient as needed. case round and in agreement with Dr schneider
[2024-09-21 05:16] LABS: Absolute Eosinophils 0.1 K/uL (0-0.5); Absolute Lymphocytes (CBC) 2.3 K/uL (0.7-4.9); Absolute Monocytes 0.9 K/uL (0.1-1.3); Absolute Neutrophil 5.3 K/uL (1.8-8.0); Basophils % 0.4 % (0-1.3); Eosinophils % 1.4 % (0-4.4); Hemoglobin 13.9 g/dL (13.6-17.9); Lymphocytes % 26.9 % (15.3-44.8); MCH 29.7 pg (27.0-35.0); MCV 87.4 fL (80-100); MPV 7.8 fL (7.6-11.3); Monocytes % 10.2 % (3.3-12.3); Neutrophils % 61.1 % (41.7-73.7); Nucleated Red Blood Cells % 0.1 % (0-0); Platelets 233 thou/uL (152-406); RBC Red Blood Cell Count 4.69 M/uL (4.33-5.43); Red Cell Distribution Width 14.9 % (12.1-15.2)
[2024-09-21 05:28] LABS: Anion Gap 8.8 mEq/L (5.0-15.0); C-Reactive Protein 71.5 mg/L (<3.00); Magnesium 2.3 mg/dL (1.6-2.4); Potassium 3.8 mEq/L (3.5-5.1)
[2024-09-21] MEDS: POTASSIUM CL SA 10 MEQ TAB PO ONE (08:56)
--- NOTE | 2024-09-21 11:19 | P.PN ---
Subjective Date of Service: 09/21/24 Chief Complaint: Left lower extremity foot wound afebrile tolerating abx Review of Systems 10-point ROS is otherwise unremarkable Physical Examination - Vital Signs Temperature: 97.8 F Blood Pressure: 125/77 Pulse: 62 Respirations: 20 Pulse Ox (%): 98 - Physical Exam General: Alert, In no apparent distress HEENT: Atraumatic Neck: Supple Respiratory: Clear to auscultation bilaterally, Normal air movement Cardiovascular: Regular rate/rhythm Gastrointestinal: Soft and benign, Non-distended Musculoskeletal: Other Neurological: Normal speech - Studies Microbiology Data (last 24 hrs): 09/18/24 12:14 Wound - Left Toe Gram Stain - Final 09/18/24 12:14 Wound - Left Toe Culture & Sensitivity - Final Meth Resistant Staph Aureus Assessment And Plan - Current Problems (Diagnosis) (1) Cellulitis of leg, left Current Visit: Yes Status: Acute (2) Diabetes mellitus with hyperglycemia Current Visit: Yes Status: Acute Qualifiers: Diabetes mellitus type: type 2 - Plan Left lower extremity cellulitis Left lower extremity lymphangitislt MRI of the left lower extremity to rule out osteomyelitis Infectious disease consulted IV antibioticsvancomycin, Zosyn--> change per ID As needed analgesics, antiemetic Lower extremity Doppler negative for DVT Trend CBCs, lactic, CRP Trend cultures - ID consult, will need outpatient abx.. PICC line, likely home health Diabetes with hyperglycemia Sliding scale Educated on diabetic diet acute kidney injury unknown baseline Hyper tension Hyperlipidemia Resume appropriate home meds when reconciled Lipid panel dispo: likely need outpatient abx,PICC line anticipate DC next week Full code DVT per surgery Diet diabetic
--- NOTE | 2024-09-21 13:46 | PN ---
Date of Progress Note: 09/21/2024 Subjective: The patient is doing well. No complaint. Status post debridement of left lower extremi ty and abscess drainage. Objective: Surgical area intact. No more erythema. Imaging: The MRI discussed with the patient. Plan: Treat for osteomyelitis. May discharge whenever it is agreed by the Medical Service and follo w up with Dr. Rico [facility] after discharge. The patient fully explained. CATRACHITA/MODL Voice ID: [id number] Report ID: [id number]
[2024-09-22 00:53] VITALS: O2SAT 98
[2024-09-22 05:15] LABS: Absolute Basophils 0.1 K/uL (0-0.5); Absolute Eosinophils 0.2 K/uL (0-0.5); Absolute Lymphocytes (CBC) 2.5 K/uL (0.7-4.9); Absolute Monocytes 0.8 K/uL (0.1-1.3); Absolute Neutrophil 3.5 K/uL (1.8-8.0); Basophils % 0.8 % (0-1.3); Eosinophils % 2.4 % (0-4.4); Hemoglobin 14.4 g/dL (13.6-17.9); Lymphocytes % 35.1 % (15.3-44.8); MCH 29.3 pg (27.0-35.0); MCHC 33.6 g/dL (32.0-36.0); MCV 87.4 fL (80-100); MPV 7.6 fL (7.6-11.3); Monocytes % 11.4 % (3.3-12.3); Neutrophils % 50.3 % (41.7-73.7); Nucleated Red Blood Cells % 0.2 % (0-0); Platelets 254 thou/uL (152-406); RBC Red Blood Cell Count 4.92 M/uL (4.33-5.43); Red Cell Distribution Width 15.5 % (12.1-15.2)
[2024-09-22 05:33] LABS: Anion Gap 10.1 mEq/L (5.0-15.0); C-Reactive Protein 34.8 mg/L (<3.00); Magnesium 2.4 mg/dL (1.6-2.4); Potassium 4.1 mEq/L (3.5-5.1)
[2024-09-22] MEDS: MUPIROCIN 2% OINT 22GM TUBE TOP SCH (09:39)
[2024-09-22] MEDS: VANCOMYCIN 1.25 GM in NA CHLORIDE 0.9% 250 ML IVPB SCH (12:54)
[2024-09-22] MEDS: Mupirocin NASAL 2 APPL/1 GM TUBE NAS SCH (20:59)
--- NOTE | 2024-09-22 21:25 | RAD REPORT ---
EXAMINATION: ONE VIEW CHEST XR CLINICAL INDICATION: PICC placement TECHNIQUE: Frontal chest projection is submitted. Examination is limited by patient positioning and t echnique. COMPARISON: No prior exam. FINDINGS: Left-sided PICC line is in place with tip in the SVC. The lungs are clear. The heart is normal in siz e. No displaced fractures identified.
[2024-09-23 04:59] LABS: Absolute Eosinophils 0.2 K/uL (0-0.5); Absolute Lymphocytes (CBC) 2.5 K/uL (0.7-4.9); Absolute Monocytes 0.9 K/uL (0.1-1.3); Absolute Neutrophil 4.2 K/uL (1.8-8.0); Basophils % 0.6 % (0-1.3); Eosinophils % 2.4 % (0-4.4); Hemoglobin 14.9 g/dL (13.6-17.9); Lymphocytes % 32.3 % (15.3-44.8); MCH 29.5 pg (27.0-35.0); MCHC 33.9 g/dL (32.0-36.0); MCV 86.9 fL (80-100); MPV 7.3 fL (7.6-11.3); Neutrophils % 53.7 % (41.7-73.7); Nucleated Red Blood Cells % 0.1 % (0-0); Platelets 302 thou/uL (152-406); RBC Red Blood Cell Count 5.07 M/uL (4.33-5.43); Red Cell Distribution Width 15.1 % (12.1-15.2)
[2024-09-23 05:12] LABS: Anion Gap 8.9 mEq/L (5.0-15.0); Magnesium 2.5 mg/dL (1.6-2.4); Potassium 3.9 mEq/L (3.5-5.1)
--- NOTE | 2024-09-23 08:15 | P.PN ---
Date of Service: 09/22/24 Subjective Patient's doing better. Still with some pain in the left foot; wound cultures with MRSA; will need outpatient IV antibiotic therapy. Physical Examination - Vital Signs Reviewed - Physical Exam General: Alert, In no apparent distress Respiratory: Clear to auscultation bilaterally, Normal air movement Cardiovascular: Regular rate/rhythm Gastrointestinal: Soft and benign, Non-distended Musculoskeletal: Other Neurological: Decreased sensation; otherwise no focal deficits Integumentary: Erythema of the left 2nd toe; tenderness; third toe amputated(left foot) Assessment And Plan -Assessment/Plan (1) Cellulitis of leg, left Current Visit: Yes Status: Acute Left lower extremity lymphangitis MRI of the left lower extremity to rule out osteomyelitis Infectious disease consulted IV antibioticsvancomycin, Zosyn--> change per ID As needed analgesics, antiemetic Lower extremity Doppler negative for DVT Trend CBCs, lactic, CRP Trend cultures -ID consult, will need outpatient abx. PICC line, likely home health (2) Acute kidney injury Current Visit: Yes Status: Acute - continue monitoring renal function closely; patient hydrated and renal function has improved (3) Metabolic syndrome Current Visit: Yes Status: Acute -Strict blood pressure and blood sugar control
--- NOTE | 2024-09-23 08:17 | P.PN ---
Date of Service: 09/23/24 Subjective Patient's doing better. Still with some pain in the left foot; wound cultures with MRSA; will need outpatient IV antibiotic therapy. Physical Examination - Vital Signs Reviewed - Physical Exam General: Alert, In no apparent distress Respiratory: Clear to auscultation bilaterally, Normal air movement Cardiovascular: Regular rate/rhythm Gastrointestinal: Soft and benign, Non-distended Musculoskeletal: Other Neurological: Decreased sensation; otherwise no focal deficits Integumentary: Erythema of the left 2nd toe; tenderness; third toe amputated (left foot) Assessment And Plan -Assessment/Plan (1) Cellulitis of leg, left Current Visit: Yes Status: Acute MRI of the left lower extremity to rule out osteomyelitis Infectious disease consulted IV antibioticsvancomycin at discharge Lower extremity Doppler negative for DVT Trend CBCs, lactic, CRP Trend cultures -ID consult, will need outpatient abx. PICC line, likely home health (2) Acute kidney injury Current Visit: Yes Status: Acute - continue monitoring renal function closely; patient hydrated and renal function has improved (3) Metabolic syndrome Current Visit: Yes Status: Acute -Strict blood pressure and blood sugar control; continue with statin therapy and monitor thyroid levels
--- NOTE | 2024-09-23 15:39 | P.PN ---
Date of Service: 09/23/24 Subjective ROS reviewed and negative unless stated in HPI.denied problem with abx. no other concern. Physical Examination Temp Pulse Resp BP Pulse Ox 98.0 F 81 16 132/69 95 09/23/24 12:00 09/23/24 12:00 09/23/24 12:00 09/23/24 12:00 09/23/24 12:00 - Physical Exam General: Alert and oriented x 3 Neck: Supple, No JVD Cardio: RRR Respiratory: CTA Gastrointestinal: Soft and benign, Non-distended Musculoskeletal: Other (left foot covered in dressing) Microbiology 09/18/24 12:10 Blood - Blood Aerobic Blood Culture - Final No growth in 5 days. 09/18/24 12:10 Blood - Blood Anaerobic Blood Culture - Final No growth in 5 days. 09/18/24 12:30 Blood - Blood Aerobic Blood Culture - Final No growth in 5 days. 09/18/24 12:30 Blood - Blood Anaerobic Blood Culture - Final No growth in 5 days. 09/18/24 12:14 Wound - Left Toe Gram Stain - Final 09/18/24 12:14 Wound - Left Toe Culture & Sensitivity - Final Meth Resistant Staph Aureus Laboratory Results WBC 7.8, Hgb 14.9, Platelet 302, BUN 17, Cr 1.8 Assessment And Plan Left 2nd toe OM Left foot Cellulitis and diabetic foot ulcer s/p debridement DM with hyperglycemia MRI left foot shows Abnormal signal second distal phalanx compatible with osteomyelitis. Continue Vancomycin and Meropenem antibiotic for 6 weeks. tentative stop date November 01. Continue wound and supportive care. Monitor WBC and fever trend. We will follow the patient as needed. case round and in agreement with Dr schneider
[2024-09-24] MEDS ORDERED: GLUCAGON 1 MG/VIAL IM PRN (10:48)
[2024-09-24] MEDS ORDERED: D10W 125 ML IV PRN (10:48)
--- NOTE | 2024-09-24 11:58 | P.DS ---
Admission Date: 09/18/24 Discharge Date: 09/24/24 Disposition: ROUTINE DISCHARGE Discharge Condition: GOOD Reason for Admission: Left lower extremity foot wound Hospital Course: 54-year-old male with a past medical history of type 2 diabetes, hypertension, hyperlipidemia presenting with left foot wound and cellulitis. He was admitted to the hospital and started on IV antibiotics. Infectious disease was consulted and imaging revealed increased lucency at the tip of the second distal phalanx indicating osteomyelitis. He will be placed on antibiotics for 6 weeks. He will be discharged with Merrem and vancomycin. In addition his hospital course was complicated with mild acute kidney injury. His kidney function improved with hydration. Remainder of his medical problems are chronic and stable. He is medically optimized for discharge Vital Signs/Physical Exam: Temp Pulse Resp BP Pulse Ox 98.0 F 69 14 135/84 97 09/24/24 08:00 09/24/24 08:00 09/24/24 08:00 09/24/24 08:00 09/24/24 08:00 General: In no apparent distress HEENT: Atraumatic, Normocephalic Neck: Supple, 2+ carotid pulse no bruit Respiratory: Clear to auscultation bilaterally, Normal air movement Cardiovascular: No edema Capillary refill: <2 Seconds Gastrointestinal: Normal bowel sounds, Soft and benign Musculoskeletal: No clubbing, No swelling Integumentary: No rashes, No breakdown Neurological: Normal speech Lymphatics: No axilla or inguinal lymphadenopathy Laboratory Data at Discharge: WBC 7.80 thou/uL (4.3-10.9) 09/23/24 04:50 Hgb 14.9 g/dL (13.6-17.9) 09/23/24 04:50 Hct 44.0 % (39.6-49.0) 09/23/24 04:50 Plt Count 302 thou/uL (152-406) 09/23/24 04:50 PT 11.7 SECONDS (10-13.0) 09/19/24 07:07 INR 1.03 09/19/24 07:07 Sodium 139 mEq/L (136-145) 09/23/24 04:50 Potassium 3.9 mEq/L (3.5-5.1) 09/23/24 04:50 BUN 17 mg/dL (7-18) 09/23/24 04:50 Creatinine 1.80 mg/dL (0.70-1.30) H 09/23/24 04:50 Glucose 122 mg/dL (74-106) H 09/23/24 04:50 Magnesium 2.5 mg/dL (1.6-2.4) H 09/23/24 04:50 Total Bilirubin 0.8 mg/dL (0.2-1.0) 09/18/24 12:23 AST 32 U/L (15-37) 09/18/24 12:23 ALT 33 U/L (16-61) 09/18/24 12:23 Alkaline Phosphatase 92 U/L (45-117) 09/18/24 12:23 Home Medications: Rosuvastatin [Crestor*] 2 tab PO DAILY 08/22/22 Pantoprazole [Protonix Tab*] 40 mg PO DAILY 01/16/24 Dapagliflozin Propanediol [Farxiga] 10 mg PO DAILY 09/18/24 Hydrocodone Bit/Acetaminophen [Sherman 7.5-325 Tablet] 1 tab PO Q4HP PRN 09/18/24 Losartan Potassium [Cozaar*] 50 mg PO DAILY 09/18/24 Hydrocodone 5/APAP 325 [Sherman 5/325*] 1 tab PO Q8H PRN 7 Days #21 tab 09/24/24 New Medications: Hydrocodone 5/APAP 325 [Sherman 5/325*] 1 tab PO Q8H PRN 7 Days #21 tab PRN Reason: Pain Scale 5-7 (Moderate) Physician Discharge Instructions: Final Home Health and IV antibiotic arrangements: [facility] Home Health P:[phone] F:[phone] [address] P/ Tabitha: [phone] F Followup: Mino Henson MD [ACTIVE - CAN ADMIT] - 1-2 Weeks Lee Lopez MD [Primary Care Provider] - 1-2 Weeks
[2024-09-24 12:43] VITALS: BP 123/81; TEMP 97.9
--- NOTE | 2024-09-24 21:03 | PN ---
Subjective: The patient being discharged today. Denies any other problems. We will continue antibiotic total of 6 weeks. He already has received 1 week of antibiotic. Wound cultures are growing MRSA and MSSA. Objective: Vital Signs: Reviewed. Lungs: Clear to auscultation. Heart: S1, S2. Regular. Abdomen: Soft, nontender. Bowel sounds present. Extremities: Foot wound noted. Laboratory Data: Shows WBC 7.8, hemoglobin 14.9, platelets 302. Assessment And Plan: 1. Cellulitis of left lower extremity with osteomyelitis of foot. Continue antibiotic total of 6 weeks. 2. Diabetes mellitus. 3. Diabetic neuropathy. We will follow the patient as needed. NF/MODL Voice ID: [id number] Report ID: [id number]
== END 2024-09-24 13:11 | disposition home or self-care (01) | DRG 982 ==
LOC: ER 10:23 → ERHOLD 12:52 → 2ND 20:42
PROVIDERS: ADMIT Hospitalist; ATTEND Family Medicine
PROC: 0Y9N0ZZ Drainage of Left Foot, Open Approach (ICD-10-PCS; 2024-09-19)
PROC: 0QBR0ZZ Excision of Left Toe Phalanx, Open Approach (ICD-10-PCS; principal; 2024-09-19 12:30)
PROC: 02HV33Z Insertion of Infusion Device into Superior Vena Cava, Percutaneous Approach (ICD-10-PCS; 2024-09-22)
DX: E11.52 Type 2 diabetes mellitus with diabetic peripheral angiopathy with gangrene (principal); L02.612 Cutaneous abscess of left foot; L03.116 Cellulitis of left lower limb; N17.9 Acute kidney failure, unspecified; M86.172 Other acute osteomyelitis, left ankle and foot; E11.69 Type 2 diabetes mellitus with other specified complication; I12.9 Hypertensive chronic kidney disease with stage 1 through stage 4 chronic kidney disease, or unspecified chronic kidney disease; N18.31 Chronic kidney disease, stage 3a; E11.22 Type 2 diabetes mellitus with diabetic chronic kidney disease; E11.65 Type 2 diabetes mellitus with hyperglycemia; E11.40 Type 2 diabetes mellitus with diabetic neuropathy, unspecified; E11.621 Type 2 diabetes mellitus with foot ulcer; L97.529 Non-pressure chronic ulcer of other part of left foot with unspecified severity; E78.00 Pure hypercholesterolemia, unspecified; E88.810 Metabolic syndrome; E66.9 Obesity, unspecified; B95.62 Methicillin resistant Staphylococcus aureus infection as the cause of diseases classified elsewhere; B95.61 Methicillin susceptible Staphylococcus aureus infection as the cause of diseases classified elsewhere; Z68.28 Body mass index [BMI] 28.0-28.9, adult; Z89.422 Acquired absence of other left toe(s); Z87.891 Personal history of nicotine dependence
CPT/HCPCS: 36415; 71045; 80048; 80076; 80202; 81001; 82947; 83036; 83605; 83735; 83880; 84484; 85025; 85610; 86140; 87040; 87070; 87075; 87077; 87176; 87186; 87205; 88304; 93005; 93971; 96365; 96366; 96367; 96375; 99285; J1100; J1644; J1815; J2003; J2185; J2250; J2405; J2543; J2704; J3010; J3370; J7030; J7040; J7050